=== PATIENT | female | born 1930 | race Caucasian/White ===

== ENCOUNTER → 2016-11-13 | Day surgery (SDC) | payer MEDICARE, BC ==
[~2016-11-13] MED LIST: AMIO200T PO; ASPI1TAB91 PO; AUGM500T7 PO; BIOT50005 PO; CARD240C6 PO; CINN500T PO; COUM2.5T PO; CRANBERRY 1680 MG PO; EYECAP PO; FURO1TAB62 PO; FURO20TA PO; GLUC15009 PO; JANU50TA4 PO; LACTATED RINGER'S 1000 ML INJ 1,000 ML ONE; LEVA750T PO; LIDOCAINE HCL 1% 50 ML VIAL ONE; LIDOCAINE HCL 2% 50 ML VIAL ONE; LOVA20TA PO; METH5 PO; METO25TA3 PO; MULT-6 PO; OPTI400C PO; POTA10TA15 PO; POTA20TA5 PO; PYRI100T PO; VITA10002 PO; VITA10003 PO; VITATAB11 PO; ceFAZolin INJ 1,000 MG VIAL ONE
--- NOTE | 2016-11-13 14:59 | TN ---
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 FINAL HISTOLOGICAL DIAGNOSIS: Pending. PROCEDURE: Left foot second toe proximal phalanx excision of bone tumor SURGEON Christo Downey MD ASSESSMENT Staff SPECIMENS Left foot second toe proximal phalanx tumor COMPLICATIONS None ANESTHESIA General, regional block. DRAINS: None. TOURNIQUET TIME: The tourniquet time 11 minutes 250 mmHg CONDITION: Condition stable PLAN OF ACTIVITY: Activity as per orders. PROCEDURE The patient was operating room had satisfactory regional TIVA anesthesia and regional anesthesia by Dr. Severino Department of anesthesia. The left lower extremity was prepped and draped in usual sterile fashion. The extremity was exsanguinated with ARGELIA wrap, tourniquet inflated to 250 mmHg. Longitudinal incision made on the plantar aspect the tibia aspect of the middle phalanx proximal phalanx. This dissection carried down to the mass. The neurovascular bundle was gently retracted out of operative field. The flexor tendons also retracted out of the operative field. Bluntly a 15 blade was then used to excise the tumor from the proximal phalanx. It was removed as one piece and then a small piece was removed by a rongeur. This was sent to pathology for final histological diagnosis. All bleeders coagulated. The wound closed in layers using 3-0 Vicryl suture. Skin approximated 3-0 nylon. Tourniquet was inflated to regain his vascularity he has no significant bleeding. Sterile dressings were applied. The patient tolerated the procedure well arrived room in satisfactory condition. MD BETRHA Diane/ivette /1:51 PM /1:59 PM
== END | disposition home or self-care (01) ==
LOC: ESDC 11:34
PROVIDERS: ATTEND Orthopaedic Surgery Orthopaedic Surgery of the Spine
DX: D16.9 Benign neoplasm of bone and articular cartilage, unspecified (principal)
CPT/HCPCS: 01482; 28175; 88305; 88311; J0690; J3010; J7120; 88307

== ENCOUNTER 2016-11-27 09:42 | Inpatient (IN) | payer MEDICARE, BC ==
[~2016-11-27] VITALS: Ht 154.9 cm; Wt 72.5 kg
[2016-11-27] VITALS (22 sets, daily range): BP systolic 87–130; BP diastolic 51–82; PULSE 92–148; RESP 15–25; TEMP 98.2–98.8; O2SAT 94–97
--- NOTE | 2016-11-27 10:07 | PD ---
HPI Chief Complaint: Cardiac Complaint Time Seen by Provider: 09:50 Travel History International Travel<30 days: No Contact w/Intl Traveler<30days: No Traveled to known affect area: No History of Present Illness HPI 86-year-old female presents with her with note of diagnosis with pneumonia 2 days ago and placed on Levaquin through an urgent care. She went to her primary care physician today who advised for her to come to the emergency room given her elevated heart rate and not improving. Patient notes that she still having a cough and intermittent fever. She states she feels short of breath when she moves. She denies other history. Patient's help supplement history and patient provides records as well as patient is having difficulty talking other than in a whisper. 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 and was benign, multiple cystoscopies, cataracts Genitourinary Surgery: Yes (BLADDED SUSPENSION ) Tonsillectomy: Yes Social History Alcohol Use: Yes (ONCE ) Tobacco Use: No (QUIT ) Substance Use: No Allergies-Medications (Allergen,Severity, Reaction): Coded Allergies: Ibuprofen (Verified Allergy, Unknown, 11/27/16) Procardia (Verified Allergy, Unknown, 11/27/16) Reported Meds & Prescriptions Reported Meds & Active Scripts Active Reported Potassium Chloride Microencaps 10 Meq Tab 5 Meq PO DAILY Lasix (Furosemide) 20 Mg Tab 20 Mg PO DAILY Lovastatin 20 Mg Tab 20 Mg PO DAILY Janumet (Sitagliptin-Metformin) 50-500 Mg Tab 1 Tab PO BID Cinnamon 500 Mg Tab 1,000 Mg PO BID Optiflex-C (Chondroitin Sulfate) 400 Mg Cap 1,200 Mg PO DAILY Glucosamine 1,500 Mg Tab 1,500 Mg PO DAILY Biotin 5,000 Mcg Cap 10,000 Mcg PO DAILY Vitamin B-6 (Pyridoxine HCl) 100 Mg Tab 100 Mg PO DAILY Vitamin B Complex (B-Complex Vitamins) 1 Tab 1 Tab PO DAILY Vitamin B-12 (Cyanocobalamin) 1,000 Mcg Tab 2,000 Mcg PO DAILY Vitamin D-3 (Cholecalciferol) 1,000 Unit Tab 1,000 Units PO DAILY Aspirin Adult Low Strength (Aspirin) 81 Mg Tabdr 81 Mg PO DAILY [Cranberry 1,680MG] 1,680 Mg PO DAILY Eye Vitamins (Multiple Vitamins W/ Minerals) 1 Cap 1 Cap PO DAILY Centrum (Multiple Vitamins W/ Minerals) 1 Tab 1 Tab PO DAILY Levaquin (Levofloxacin) 750 Mg Tab 750 Mg PO DAILY Review of Systems ROS Limitations: Speech Impaired (worse voice noted, supplements) Except as stated in HPI: all other systems reviewed are Neg Physical Exam Exam Limitations: Other: (hoarse voice noted, supplements) Narrative GENERAL: Well-nourished, well-developed patient. SKIN: Warm and dry. HEAD: Normocephalic and atraumatic. EYES: No injection or drainage. ENT: No nasal drainage noted. Hoarse voice noted NECK: Supple, trachea midline. CARDIOVASCULAR: Tachycardic rate in the 140s RESPIRATORY: Breath sounds equal bilaterally at apices. No accessory muscle use. GASTROINTESTINAL: Abdomen soft, non-tender, nondistended. NEUROLOGICAL: Awake and alert. Moves all extremities Data Data Last Documented VS Vital Signs Date Time Temp Pulse Resp B/P Pulse Ox O2 Delivery O2 Flow Rate FiO2 11/27/16 11:30 144 123/74 11/27/16 11:26 25 94 Nasal Cannula 2 11/27/16 09:45 98.2 Orders Electrocardiogram (11/27/16 ) Complete Blood Count With Diff (11/27/16 10:00) Comprehensive Metabolic Panel (11/27/16 10:00) Prothrombin Time / Inr (Pt) (11/27/16 10:00) Act Partial Throm Time (Ptt) (11/27/16 10:00) Lactic Acid Sepsis Protocol (11/27/16 10:00) Magnesium (Mg) (11/27/16 10:00) Phosphorus (Po4) (11/27/16 10:00) Ckmb (Isoenzyme) Profile (11/27/16 10:00) Troponin I (11/27/16 10:00) Urinalysis - C+S If Indicated (11/27/16 10:00) Influenzae A/B Antigen (11/27/16 10:00) Blood Culture (11/27/16 10:00) Chest, Single Ap (11/27/16 10:00) Ecg Monitoring (11/27/16 10:00) Iv Access Insert/Monitor (11/27/16 10:00) Oximetry (11/27/16 10:00) B-Type Natriuretic Peptide (11/27/16 10:00) Sodium Chlorid 0.9% 500 Ml Inj (Ns 500 M (11/27/16 10:15) Metoprolol Tartrate Inj (Lopressor Inj) (11/27/16 10:15) CKMB (11/27/16 10:10) CKMB% (11/27/16 10:10) Cefepime Inj (Maxipime Inj) (11/27/16 11:05) Azithromycin Inj (Zithromax Inj) (11/27/16 11:05) Metoprolol Tartrate Inj (Lopressor Inj) (11/27/16 11:15) Sodium Chlorid 0.9% 500 Ml Inj (Ns 500 M (11/27/16 11:15) Consult Cardiology (11/27/16 ) (Hub Use Only)Inp Phy Cons/Ref (11/27/16 ) Admit Order (Ed Use Only) (11/27/16 11:35) Labs Laboratory Tests Test 11/27/16 11/27/16 11/27/16 10:10 10:15 10:45 White Blood Count 14.2 TH/MM3 Red Blood Count 3.63 MIL/MM3 Hemoglobin 11.6 GM/DL Hematocrit 33.8 % Mean Corpuscular Volume 93.0 FL Mean Corpuscular Hemoglobin 32.0 PG Mean Corpuscular Hemoglobin 34.4 % Concent Red Cell Distribution Width 13.2 % Platelet Count 309 TH/MM3 Mean Platelet Volume 9.2 FL Neutrophils (%) (Auto) 77.1 % Lymphocytes (%) (Auto) 7.0 % Monocytes (%) (Auto) 15.6 % Eosinophils (%) (Auto) 0.1 % Basophils (%) (Auto) 0.2 % Neutrophils # (Auto) 11.0 TH/MM3 Lymphocytes # (Auto) 1.0 TH/MM3 Monocytes # (Auto) 2.2 TH/MM3 Eosinophils # (Auto) 0.0 TH/MM3 Basophils # (Auto) 0.0 TH/MM3 CBC Comment AUTO DIFF Differential Comment AUTO DIFF CONFIRMED Prothrombin Time 11.4 SEC Prothromb Time International 1.0 RATIO Ratio Activated Partial 36.3 SEC Thromboplast Time Sodium Level 136 MEQ/L Potassium Level 3.3 MEQ/L Chloride Level 99 MEQ/L Carbon Dioxide Level 25.9 MEQ/L Anion Gap 11 MEQ/L Blood Urea Nitrogen 16 MG/DL Creatinine 0.87 MG/DL Estimat Glomerular Filtration 61 ML/MIN Rate Random Glucose 118 MG/DL Calcium Level 9.2 MG/DL Phosphorus Level 2.6 MG/DL Magnesium Level 2.0 MG/DL Total Bilirubin 0.7 MG/DL Aspartate Amino Transf 28 U/L (AST/SGOT) Alanine Aminotransferase 28 U/L (ALT/SGPT) Alkaline Phosphatase 124 U/L Total Creatine Kinase 154 U/L Creatine Kinase MB 3.1 NG/ML Troponin I 0.06 NG/ML B-Type Natriuretic Peptide 428 PG/ML Total Protein 7.5 GM/DL Albumin 3.0 GM/DL Lactic Acid Level 2.5 mmol/L Urine Color YELLOW Urine Turbidity CLEAR Urine pH 5.0 Urine Specific [place] 1.009 Urine Protein NEG mg/dL Urine Glucose (UA) NEG mg/dL Urine Ketones NEG mg/dL Urine Occult Blood NEG Urine Nitrite NEG Urine Bilirubin NEG Urine Urobilinogen LESS THAN 2.0 MG/DL Urine Leukocyte Esterase NEG Urine RBC LESS THAN 1 /hpf Urine WBC LESS THAN 1 /hpf Urine Squamous Epithelial 2 /hpf Cells Urine Bacteria RARE /hpf Urine Mucus FEW /lpf Microscopic Urinalysis Comment CATH-CULTURE IND MDM Medical Decision Making Medical Screen Exam Complete: Yes Emergency Medical Condition: Yes Medical Record Reviewed: Yes (past history confirmed) Interpretation(s) EKG is tachycardic in the 140s question a flutter versus sinus tachycardia EKG rhythm strip question underlying a flutter versus A. fib after adenosine CBC & BMP Diagram 11/27/16 10:10 Last 24 hours Impressions Chest X-Ray 11/27/16 1000 Signed Impressions: Service Date/Time: Sunday, November 27, 2016 10:07 - CONCLUSION: 1. Coarse patchy opacity in both lung bases. The differential diagnosis includes aspiration pneumonia and scarring. 2. Mild hyperinflation which could indicate underlying emphysema. Comparison with any old outside studies would be helpful. Greg Harris MD Differential Diagnosis SVT, a flutter, atrial fibrillation, sinus tachycardia, sepsis, pneumonia, anemia, electrolyte abnormality, renal failure Narrative Course Will check blood work, chest x-ray, EKG and dose with Lopressor 1.25mg no change after initial Lopressor dose 2.5 mg given no change in hr but dropped BP, will bolus IVF adenosine 1306 given an question underlying A. fib versus flutter, will discuss with nutrition partner 311 amio drip and bolus ordered. Family updated and agree to admission. Critical Care Narrative Aggregate critical care time was 50 minutes. Time to perform other separately billable procedures was not included in the critical care time. My time did not include minutes spent treating any other patients simultaneously or on activities that did not directly contribute to the patient's treatment. The services I provided to this patient were to treat and/or prevent clinically significant deterioration that could result in: shock, respiratory failure I provided critical care services requiring my management, as noted below: Chart data review, documentation time, medication orders and management, vital sign assessments/reviewing monitor data, ordering and reviewing lab tests, ordering and interpreting/reviewing x-rays and diagnostic studies, care of the patient and discussion of the patient with the admitting physicians. Sepsis Criteria SIRS Criteria (2 or more): Heart rate over 90, WBC > 08036, < 4000 or > 10% bands Sepsis Criteria (SIRS+source): Infect source susp/known Severe Sepsis (+one): Lactate >2 Criteria Outcome: Meets severe sepsis criteria Physician Communication Physician Communication dr Cannon states to repeat ivf and lopressor and will follow [address] cannon states to give adenosine to see underlying rhythm dr cannon came to bedside and agrees to amiodarone 150mg bolus and drip as likely underlying atrial tachycardia dr yeager agrees to admit Diagnosis Primary Impression: Severe sepsis Additional Impressions: Tachycardia Pneumonia Qualified Code: J18.9 - Pneumonia of both lower lobes due to infectious organism Admitting Information Admitting Physician Requests: Admit Frances Bhatti MD Nov 27, 2016 10:07
[2016-11-27] MEDS ORDERED: SODIUM CHLORID 0.9% 500 ML INJ 500 ML IV ONE ×2 (10:15→11:15)
[2016-11-27] MEDS ORDERED: METOPROLOL TARTRATE 5 MG/5 ML VIAL IV PUSH ONE ×2 (10:15→11:15)
--- NOTE | 2016-11-27 10:43 | RADRPT ---
EXAM DATE/TIME: 11/27/2016 10:07 [place] COMPARISON: No previous studies available for comparison. INDICATIONS : Short of breath. MEDICAL HISTORY : pneumonia SURGICAL HISTORY : None. ENCOUNTER: Initial ACUITY: 1 day PAIN SCORE: 0/10 LOCATION: Bilateral chest FINDINGS: 2 AP erect portable views of the chest were obtained and demonstrate mild hyperinflation. There are p atchy coarse areas of opacity in both lung bases. The heart size is at the upper limits of normal wit h no perihilar edema. Tracheal calcifications are noted. There are atherosclerotic changes in the aor ta. The bony thorax is intact with multiple overlying electrocardiogram leads. CONCLUSION: 1. Coarse patchy opacity in both lung bases. The differential diagnosis includes aspiration pneumonia and scarring. 2. Mild hyperinflation which could indicate underlying emphysema. Comparison with any old outside tra dies would be helpful. Greg Harris MD on November 27, 2016 at 10:39 Board Certified Radiologist. This report was verified electronically.
[2016-11-27 10:45] LABS: BASOPHIL % 0.2 % (0.0-2.0); EOSINOPHIL % 0.1 % (0.0-4.0); HEMATOCRIT 33.8 % (35.0-46.0); MEAN CORPUSCULAR HGB CONC 34.4 % (32.0-36.0); MONO % 15.6 % (0.0-8.0); NEUT % 77.1 % (16.0-70.0); PLATELET COUNT 309 TH/MM3 (150-450); RED BLOOD COUNT 3.63 MIL/MM3 (4.00-5.30); RED CELL DISTRIBUTION WIDTH 13.2 % (11.6-17.2); WHITE BLOOD COUNT 14.2 TH/MM3 (4.0-11.0)
[2016-11-27 10:49] LABS: HEMO FLAGS AUTO DIFF
[2016-11-27 10:53] LABS: APTT (PATIENT) 36.3 SEC (24.3-30.1); PROTHROMBIN TIME - PATIENT 11.4 SEC (9.8-11.6)
[2016-11-27 10:58] LABS: ALT (GPT) 28 U/L (10-53); ANION GAP 11 MEQ/L (5-15); AST (GOT) 28 U/L (15-37); BICARBONATE 25.9 MEQ/L (21.0-32.0); BLOOD UREA NITROGEN 16 MG/DL (7-18); CHLORIDE 99 MEQ/L (98-107); GLOMERULAR FILTRATION RATE 61 ML/MIN (>89); POTASSIUM 3.3 MEQ/L (3.5-5.1); SODIUM (NA) 136 MEQ/L (136-145)
[2016-11-27 11:04] LABS: ALKALINE PHOSPHATASE 124 U/L (45-117); CREATINE KINASE 154 U/L (26-192); TOTAL BILIRUBIN ADULT 0.7 MG/DL (0.2-1.0)
[2016-11-27] MEDS ORDERED: AZITHROMYCIN INJ 500 MG in SODIUM CHLOR 0.9% 250 ML INJ 250 ML IV STA (11:05)
[2016-11-27] MEDS ORDERED: CEFEPIME INJ 2,000 MG in SODIUM CHLORIDE 0.9% INJ 100 ML IV STA (11:05)
[2016-11-27 11:13] LABS: SCAN/DIFF AUTO DIFF CONFIRMED
[2016-11-27 11:19] LABS: CKMB 3.1 NG/ML (0.5-3.6)
[2016-11-27] MEDS ORDERED: MULT-6 PO (11:29)
[2016-11-27] MEDS ORDERED: ASPI1TAB91 PO (11:29)
[2016-11-27] MEDS ORDERED: LEVA750T PO (11:29)
[2016-11-27] MEDS ORDERED: VITA10002 PO (11:29)
[2016-11-27] MEDS ORDERED: CRANBERRY 1680 MG PO (11:29)
[2016-11-27] MEDS ORDERED: CINN500T PO (11:29)
[2016-11-27] MEDS ORDERED: PYRI100T PO (11:29)
[2016-11-27] MEDS ORDERED: FURO1TAB62 PO (11:29)
[2016-11-27] MEDS ORDERED: LOVA20TA PO (11:29)
[2016-11-27] MEDS ORDERED: VITATAB11 PO (11:29)
[2016-11-27] MEDS ORDERED: JANU50TA4 PO (11:29)
[2016-11-27] MEDS ORDERED: POTA10TA15 PO (11:29)
[2016-11-27] MEDS ORDERED: VITA10003 PO (11:29)
[2016-11-27] MEDS ORDERED: GLUC15009 PO (11:29)
[2016-11-27] MEDS ORDERED: OPTI400C PO (11:29)
[2016-11-27] MEDS ORDERED: EYECAP PO (11:29)
[2016-11-27] MEDS ORDERED: BIOT50005 PO (11:29)
[2016-11-27 11:42] LABS: BACTERIA, URINE RARE /hpf; BLOOD, URINE NEG (NEG); GLUCOSE,URINE NEG (NEG); KETONE, URINE NEG (NEG); MUCUS URINE FEW /lpf (OCC); NITRITE,URINE NEG (NEG); SQUAMOUS EPITHELIAL CELL URINE 2 /hpf (0-5); URINE COLOR YELLOW (YELLW/STRAW)
[2016-11-27 11:44] LABS: COMMENT (UR) CATH-CULTURE IND; CULTURE IF INDICATED CATH CULTURE IND
[2016-11-27] MEDS: AZITHROMYCIN INJ 500 MG in SODIUM CHLOR 0.9% 250 ML INJ 250 ML IV SCH (12:00)
[2016-11-27 12:29] LABS: LACTIC ACID GHOST NOT REPORTABLE
[2016-11-27] MEDS ORDERED: ADENOSINE IV SOLN 3 MG/ML 2 ML VIAL IV PUSH ONE (12:45)
--- NOTE | 2016-11-27 13:22 | EKG ---
Date Performed: 11/27/2016 Time Performed: 09:54:25 PTAGE: 86 years EKG: POSSIBLE SUPRAVENTRICULAR TACHYCARDIA POSSIBLE INFERIOR MYOCARDIAL INFARCTION NONSPECIFIC S T/T CHANGES ABNORMAL RHYTHM ECG NO PREVIOUS TRACING DOCTOR: Richardson Ferguson Interpretating Date/Time 11/27/2016 13:21:22
[2016-11-27] MEDS ORDERED: METOPROLOL TARTRATE 25 MG TAB PO SCH (14:00)
[2016-11-27] MEDS: AMPICILLIN-SULBACTAM INJ 3 GM in SODIUM CHLORIDE 0.9% INJ 100 ML IV SCH ×2 (14:36→21:15)
[2016-11-27] MEDS: SODIUM CHLOR 0.9% 1000 ML INJ 1,000 ML IV SCH ×2 (14:36→20:59)
[2016-11-27] MEDS ORDERED: AMIODARONE INJ 900 MG in D5W 500 ML (EXCEL BAG) 482 ML IV SCH (15:15)
[2016-11-27] MEDS ORDERED: AMIODARONE INJ 150 MG in DEXTROSE 5% IN WATER 100ML INJ 97 ML IV ONE ×2 (15:15)
[2016-11-27] MEDS ORDERED: POTASSIUM CHLORIDE 25 MEQ EFFERVESCENT TAB PO ONE (15:45)
[2016-11-27] MEDS ORDERED: AMIODARONE INJ 450 MG in D5W (EXCEL BAG) 241 ML IV SCH (16:00)
--- NOTE | 2016-11-27 17:09 | MB ---
cc: JOVANY SANCHEZ MD DATE OF CONSULTATION: 11/27/2016 REASON FOR CONSULTATION: New onset atrial fibrillation. HISTORY OF PRESENT ILLNESS Ms. Levy is an 86 year-old female who does have a history of diabetes and dyslipidemia. The patient reports that she has had fever and chills, and was seen by her primary recently and placed on antibiotics for this. She represented today and was found to have an elevated heart rate and subsequently referred to the emergency room. The patient denies any chest pain or palpitations. She has had some shortness of breath. ALLERGIES: IBUPROFEN PROCARDIA OUTPATIENT MEDICATIONS: 1. Lasix. 2. Potassium. 3. Lovastatin. 4. Janumet. 5. Multiple stqi-vag-ymjhgal medications. 6. Levaquin. PAST MEDICAL HISTORY: Significant for: 1. Diabetes. 2. Dyslipidemia. 3. Cataracts. Status post surgery bilaterally. 4. Right hip replacement by Dr. Austin Cerna. 5. Bladder suspension. 6. Pericarditis. 7. Multiple episodes of pneumonia. SOCIAL HISTORY: The patient is . She is a former smoker. REVIEW OF SYSTEMS: Except as mentioned in the HPI, all 12 systems are negative. PHYSICAL EXAMINATION: Vital signs 144, 16, 107/66 with a saturation of 93. GENERAL: She is a well-appearing female who is in no apparent distress. NECK: Free from JVD. LUNGS: Some diffuse crackles. CARDIOVASCULAR: She has a tachycardiac rhythm. I am unable to appreciate any murmurs, rubs, or gallops. ABDOMEN: Soft. EXTREMITIES: Free from edema. LABORATORY VALUES: Significant for white count of 14.2, her creatinine is 0.87, lactic acid is 2.5, troponin is 0.06 and BMP is 428 with an albumin of 3.0. Chest x-ray shows coarse bilateral patchy opacities. Telemetry shows supraventricular tachycardia at 144 beats per minute. Intervention with adenosine does show a slowing of the ventricular rate and what appears to be an underlying atrial fibrillation. IMPRESSION New onset atrial fibrillation. The patient had been given some IV fluids and Lopressor initially. Her blood pressure did get low with this. Subsequently adenosine was utilized and did reveal new onset atrial fibrillation. At this time we are going to add IV amiodarone. I do also anticipate adding metoprolol p.o. to assist with rate control. If her heart rate does not respond to these measures, will consider cardioversion after the amiodarone is in. The patient has a CHADSVASC score of at least 4, for over 75, female, and diabetes. Thus, she would benefit from anticoagulation. Of note, the patient is not able to tell how long she was in A-fib, thus, the cardioversion would have a significantly elevated risk profile. This will be taken into consideration. Pneumonia. This is being managed by the primary team. Hypokalemia. The patient will be supplemented for this as well. Jovany Sanchez M.D. [place]/BRYN /3:32 PM /4:37 PM
[2016-11-27] MEDS ORDERED: DILTIAZEM HCL 25 MG/5 ML VIAL IV ONE (17:15)
[2016-11-27] MEDS: ENOXAPARIN SODIUM 60 MG/0.6 ML SYRINGE SQ SCH (17:20)
[2016-11-27] MEDS ORDERED: DIGOXIN 0.5 MG/2 ML VIAL IV PUSH ONE (18:00)
[2016-11-27] MEDS ORDERED: DILTIAZEM HCL 25 MG/5 ML VIAL IVP ONE (18:00)
[2016-11-27] MEDS ORDERED: DEXTROSE 50% IN WATER 50 ML VIAL(D50) IV PUSH PRN (18:15)
[2016-11-27] MEDS ORDERED: GLUCAGON 1 MG/ML VIAL OTHER PRN (18:15)
--- NOTE | 2016-11-27 18:17 | HHI.PR ---
Objective Objective Results - Vital Signs Date Time Temp Pulse Resp B/P Pulse Ox O2 Delivery O2 Flow Rate FiO2 11/27/16 18:00 139 20 103/64 95 Nasal Cannula 6 11/27/16 17:15 139 15 111/60 96 Nasal Cannula 6 11/27/16 16:15 137 107/60 Nasal Cannula 2 11/27/16 16:00 144 25 114/64 96 Nasal Cannula 6 11/27/16 15:30 143 25 119/65 96 Nasal Cannula 2 11/27/16 14:30 144 16 117/71 95 Nasal Cannula 2 11/27/16 13:14 144 17 108/65 97 Room Air 11/27/16 13:08 144 19 108/66 96 Nasal Cannula 2 11/27/16 12:15 144 87/51 Nasal Cannula 2 11/27/16 12:00 144 25 91/57 96 Nasal Cannula 2 11/27/16 11:45 142 97/59 11/27/16 11:30 144 123/74 11/27/16 11:26 146 25 123/74 94 Nasal Cannula 2 11/27/16 10:25 92 Room Air 11/27/16 10:25 146 22 120/67 95 Nasal Cannula 2 11/27/16 09:53 147 16 130/82 95 11/27/16 09:45 98.2 148 16 115/64 95 Result Diagram: 11/27/16 1010 11/27/16 1010 Other Results Laboratory Tests Test 11/27/16 11/27/16 11/27/16 11/27/16 10:10 10:15 10:45 17:10 White Blood Count 14.2 Red Blood Count 3.63 Hemoglobin 11.6 Hematocrit 33.8 Mean Corpuscular Volume 93.0 Mean Corpuscular Hemoglobin 32.0 Mean Corpuscular Hemoglobin 34.4 Concent Red Cell Distribution Width 13.2 Platelet Count 309 Mean Platelet Volume 9.2 Neutrophils (%) (Auto) 77.1 Lymphocytes (%) (Auto) 7.0 Monocytes (%) (Auto) 15.6 Eosinophils (%) (Auto) 0.1 Basophils (%) (Auto) 0.2 Neutrophils # (Auto) 11.0 Lymphocytes # (Auto) 1.0 Monocytes # (Auto) 2.2 Eosinophils # (Auto) 0.0 Basophils # (Auto) 0.0 CBC Comment AUTO DIFF Differential Comment AUTO DIFF CONFIRMED Prothrombin Time 11.4 Prothromb Time International 1.0 Ratio Activated Partial 36.3 Thromboplast Time Sodium Level 136 Potassium Level 3.3 Chloride Level 99 Carbon Dioxide Level 25.9 Anion Gap 11 Blood Urea Nitrogen 16 Creatinine 0.87 Estimat Glomerular Filtration 61 Rate Random Glucose 118 Calcium Level 9.2 Phosphorus Level 2.6 Magnesium Level 2.0 Total Bilirubin 0.7 Aspartate Amino Transf 28 (AST/SGOT) Alanine Aminotransferase 28 (ALT/SGPT) Alkaline Phosphatase 124 Total Creatine Kinase 154 Creatine Kinase MB 3.1 Troponin I 0.06 B-Type Natriuretic Peptide 428 Total Protein 7.5 Albumin 3.0 Lactic Acid Level 2.5 1.1 Urine Color YELLOW Urine Turbidity CLEAR Urine pH 5.0 Urine Specific [place] 1.009 Urine Protein NEG Urine Glucose (UA) NEG Urine Ketones NEG Urine Occult Blood NEG Urine Nitrite NEG Urine Bilirubin NEG Urine Urobilinogen LESS THAN 2.0 Urine Leukocyte Esterase NEG Urine RBC LESS THAN 1 Urine WBC LESS THAN 1 Urine Squamous Epithelial 2 Cells Urine Bacteria RARE Urine Mucus FEW Microscopic Urinalysis Comment CATH-CULTURE IND Date/Time Procedure Status Source Growth 11/27/16 10:45 Urine Culture Received Urine Catheterized Urine Pending 11/27/16 10:15 Aerobic Blood Culture Received Blood Peripheral Pending 11/27/16 10:15 Anaerobic Blood Culture Received Blood Peripheral Pending 11/27/16 10:10 Influenza Types A,B Antigen (BRADY) - Final Complete Nasal Aspirate NEGATIVE FOR FLU A AND B ANTIGEN.... Physical Exam Physical Exam PT is seen & examined d/w PT d/w Sraa d/w MARIETTA TRINIDAD see Orders see H&P Pneumonia new onset Afib/flutter w RVR DM abx card input appreciated will; f/u Jimbo Romero MD Nov 27, 2016 18:17
[2016-11-27] MEDS: DILTIAZEM INJ 125 MG in SODIUM CHLORIDE 0.9% INJ 100 ML IV SCH (20:57)
[2016-11-27] MEDS: FAMOTIDINE 20 MG TAB PO SCH (21:00)
[2016-11-27] MEDS: INSULIN ASPART SUPPLEMENTAL SCALE SQ SCH (21:07)
[2016-11-27] MEDS: metFORMIN HCL 500 MG TAB PO SCH (21:12)
[2016-11-28] VITALS (24 sets, daily range): BP systolic 104–131; BP diastolic 53–71; PULSE 87–142; RESP 16–18; TEMP 97.8–98.7; O2SAT 92–96
[2016-11-28] MEDS: AMPICILLIN-SULBACTAM INJ 3 GM in SODIUM CHLORIDE 0.9% INJ 100 ML IV SCH ×4 (00:54→20:03)
[2016-11-28] MEDS: ENOXAPARIN SODIUM 60 MG/0.6 ML SYRINGE SQ SCH ×2 (05:23→17:36)
[2016-11-28] MEDS: INSULIN ASPART SUPPLEMENTAL SCALE SQ SCH ×4 (05:25→20:03)
[2016-11-28] MEDS: DILTIAZEM INJ 125 MG in SODIUM CHLORIDE 0.9% INJ 100 ML IV SCH (05:26)
[2016-11-28 06:22] LABS: MEAN CELL VOLUME 93.9 FL (80.0-100.0); MEAN CORPUSCULAR HEMOGLOBIN 31.5 PG (27.0-34.0); MEAN CORPUSCULAR HGB CONC 33.5 % (32.0-36.0); PLATELET COUNT 298 TH/MM3 (150-450); RED BLOOD COUNT 3.31 MIL/MM3 (4.00-5.30); RED CELL DISTRIBUTION WIDTH 13.4 % (11.6-17.2); REVIEW FLAG FINAL; WHITE BLOOD COUNT 13.9 TH/MM3 (4.0-11.0)
[2016-11-28 06:50] LABS: BICARBONATE 22.8 MEQ/L (21.0-32.0); POTASSIUM 3.8 MEQ/L (3.5-5.1)
--- NOTE | 2016-11-28 07:26 | PD.CARD.PN ---
Subjective Subjective Remarks Pt feeling better Objective Medications Current Medications Medications (Trade) Dose Ordered Sig/Yovanny Route Start Time Stop Time Status Last Admin Ampicillin Sodium/ Sulbactam Sodium 3 gm/Sodium Chloride 100 ml @ 200 mls/hr Q6H IV 11/27/16 14:00 11/28/16 00:54 (Zithromax Inj/ NS 250 ml Inj) 250 ml @ 250 mls/hr Q24H IV 11/27/16 12:00 Famotidine 20 mg 20 mg BID PO 11/27/16 21:00 Sodium Chloride 1,000 ml @ 84 mls/hr [id number] IV 11/27/16 12:30 11/27/16 20:59 (Cordarone Inj/ D5W ([place]) Inj) 250 ml @ 0 mls/hr CONTINUOUS IV 11/27/16 16:00 Enoxaparin Sodium 60 mg 60 mg Q12H SQ 11/27/16 18:00 11/28/16 05:23 (Cardizem Inj/NS Inj) 125 ml @ 0 mls/hr TITRATE IV 11/27/16 18:00 11/28/16 05:26 (Ecotrin Ec) 81 mg DAILY PO 11/28/16 09:00 (Pravachol) 20 mg DAILY PO 11/28/16 09:00 (Januvia) 50 mg BID PO 11/27/16 21:00 11/27/16 21:08 (D50w (Vial) Inj) 25 ml UNSCH PRN IV PUSH 11/27/16 18:15 (Glucagon Inj) 1 mg UNSCH PRN OTHER 11/27/16 18:15 (Glucophage) 500 mg BID PO 11/27/16 21:00 11/27/16 21:12 Vital Signs / I&O Vital Signs Date Time Temp Pulse Resp B/P Pulse Ox O2 Delivery O2 Flow Rate FiO2 11/28/16 06:00 94 11/28/16 05:00 106 11/28/16 04:00 98.4 112 18 107/69 93 11/28/16 04:00 113 11/28/16 03:00 102 11/28/16 02:00 102 11/28/16 01:00 112 11/28/16 00:00 101 11/28/16 00:00 98.0 139 18 121/71 96 11/27/16 23:00 92 11/27/16 22:00 110 11/27/16 21:40 96 Nasal Cannula 5.00 11/27/16 21:00 138 11/27/16 20:00 98.5 139 18 112/69 96 11/27/16 20:00 137 11/27/16 18:26 98.8 140 18 105/75 97 11/27/16 18:00 139 20 103/64 95 Nasal Cannula 6 11/27/16 17:15 139 15 111/60 96 Nasal Cannula 6 11/27/16 16:15 137 107/60 Nasal Cannula 2 11/27/16 16:00 144 25 114/64 96 Nasal Cannula 6 11/27/16 15:30 143 25 119/65 96 Nasal Cannula 2 11/27/16 14:30 144 16 117/71 95 Nasal Cannula 2 11/27/16 13:14 144 17 108/65 97 Room Air 11/27/16 13:08 144 19 108/66 96 Nasal Cannula 2 11/27/16 12:15 144 87/51 Nasal Cannula 2 11/27/16 12:00 144 25 91/57 96 Nasal Cannula 2 11/27/16 11:45 142 97/59 11/27/16 11:30 144 123/74 11/27/16 11:26 146 25 123/74 94 Nasal Cannula 2 11/27/16 10:25 92 Room Air 11/27/16 10:25 146 22 120/67 95 Nasal Cannula 2 11/27/16 09:53 147 16 130/82 95 11/27/16 09:45 98.2 148 16 115/64 95 Physical Exam GENERAL: Well developed, well nourished. No acute distress. HEENT: Jugular venous pressure is normal. CHEST: Lungs rales in left base. Unlabored respiratory effort. CARDIAC: irregular rate and rhythm without S3, S4, or murmur. ABDOMEN: Soft, nontender, EXTREMITIES: No clubbing, cyanosis, or edema. Laboratory Laboratory Tests Test 11/27/16 11/27/16 11/27/16 11/27/16 10:10 10:15 10:45 17:10 White Blood Count 14.2 TH/MM3 Red Blood Count 3.63 MIL/MM3 Hemoglobin 11.6 GM/DL Hematocrit 33.8 % Mean Corpuscular Volume 93.0 FL Mean Corpuscular Hemoglobin 32.0 PG Mean Corpuscular Hemoglobin 34.4 % Concent Red Cell Distribution Width 13.2 % Platelet Count 309 TH/MM3 Mean Platelet Volume 9.2 FL Neutrophils (%) (Auto) 77.1 % Lymphocytes (%) (Auto) 7.0 % Monocytes (%) (Auto) 15.6 % Eosinophils (%) (Auto) 0.1 % Basophils (%) (Auto) 0.2 % Neutrophils # (Auto) 11.0 TH/MM3 Lymphocytes # (Auto) 1.0 TH/MM3 Monocytes # (Auto) 2.2 TH/MM3 Eosinophils # (Auto) 0.0 TH/MM3 Basophils # (Auto) 0.0 TH/MM3 CBC Comment AUTO DIFF Differential Comment AUTO DIFF CONFIRMED Prothrombin Time 11.4 SEC Prothromb Time International 1.0 RATIO Ratio Activated Partial 36.3 SEC Thromboplast Time Sodium Level 136 MEQ/L Potassium Level 3.3 MEQ/L Chloride Level 99 MEQ/L Carbon Dioxide Level 25.9 MEQ/L Anion Gap 11 MEQ/L Blood Urea Nitrogen 16 MG/DL Creatinine 0.87 MG/DL Estimat Glomerular Filtration 61 ML/MIN Rate Random Glucose 118 MG/DL Calcium Level 9.2 MG/DL Phosphorus Level 2.6 MG/DL Magnesium Level 2.0 MG/DL Total Bilirubin 0.7 MG/DL Aspartate Amino Transf 28 U/L (AST/SGOT) Alanine Aminotransferase 28 U/L (ALT/SGPT) Alkaline Phosphatase 124 U/L Total Creatine Kinase 154 U/L Creatine Kinase MB 3.1 NG/ML Troponin I 0.06 NG/ML B-Type Natriuretic Peptide 428 PG/ML Total Protein 7.5 GM/DL Albumin 3.0 GM/DL Lactic Acid Level 2.5 mmol/L 1.1 mmol/L Urine Color YELLOW Urine Turbidity CLEAR Urine pH 5.0 Urine Specific [place] 1.009 Urine Protein NEG mg/dL Urine Glucose (UA) NEG mg/dL Urine Ketones NEG mg/dL Urine Occult Blood NEG Urine Nitrite NEG Urine Bilirubin NEG Urine Urobilinogen LESS THAN 2.0 MG/DL Urine Leukocyte Esterase NEG Urine RBC LESS THAN 1 /hpf Urine WBC LESS THAN 1 /hpf Urine Squamous Epithelial 2 /hpf Cells Urine Bacteria RARE /hpf Urine Mucus FEW /lpf Microscopic Urinalysis Comment CATH-CULTURE IND Test 11/27/16 11/28/16 21:45 04:13 Troponin I 0.06 NG/ML Thyroid Stimulating Hormone 0.341 uIU/ML 3rd Gen White Blood Count 13.9 TH/MM3 Red Blood Count 3.31 MIL/MM3 Hemoglobin 10.4 GM/DL Hematocrit 31.0 % Mean Corpuscular Volume 93.9 FL Mean Corpuscular Hemoglobin 31.5 PG Mean Corpuscular Hemoglobin 33.5 % Concent Red Cell Distribution Width 13.4 % Platelet Count 298 TH/MM3 Mean Platelet Volume 9.1 FL Sodium Level 138 MEQ/L Potassium Level 3.8 MEQ/L Chloride Level 105 MEQ/L Carbon Dioxide Level 22.8 MEQ/L Anion Gap 10 MEQ/L Blood Urea Nitrogen 13 MG/DL Creatinine 0.61 MG/DL Estimat Glomerular Filtration 93 ML/MIN Rate Random Glucose 117 MG/DL Calcium Level 8.4 MG/DL Imaging Last 72 hours Impressions Chest X-Ray 11/27/16 1000 Signed Impressions: Service Date/Time: Sunday, November 27, 2016 10:07 - CONCLUSION: 1. Coarse patchy opacity in both lung bases. The differential diagnosis includes aspiration pneumonia and scarring. 2. Mild hyperinflation which could indicate underlying emphysema. Comparison with any old outside studies would be helpful. Greg Harris MD Assessment and Plan Assessment and Plan AF- rate was controlled with diltiazem, digoxin and amiodarone, then diltiazem was stopped and restarted by nursing - change to PO dilt - coumadin vs LANCE discussed => coumadin secondary to cost, I will start and further management per primary team -target INR 2.0-3.0, d/c lovenox when INR >1.9 Elevated trop- secondary to HR and hypoxia Pneumonia- antibiotics per primary team Caitlin Cannon MD Nov 28, 2016 07:26
[2016-11-28] MEDS: metFORMIN HCL 500 MG TAB PO SCH ×2 (08:07→20:03)
[2016-11-28] MEDS: DILTIAZEM HCL 90 MG TAB PO SCH ×4 (08:07→23:09)
[2016-11-28] MEDS: FAMOTIDINE 20 MG TAB PO SCH ×2 (08:08→20:03)
[2016-11-28] MEDS: PRAVASTATIN SOD 20 MG TAB PO SCH (08:08)
[2016-11-28] MEDS ORDERED: ASPIRIN EC 81 MG TABEC PO SCH (09:00)
--- NOTE | 2016-11-28 09:33 | MH ---
cc: ART ROMERO MD DATE OF ADMISSION 11/27/2016 DATE OF 1930 CHIEF COMPLAINT Recent diagnosis of pneumonia and tachycardia. Travel in the last 30 days, none. HISTORY OF THE PRESENT ILLNESS This is a pleasant 86-year-old white female who was in her usual state of health and very active up until approximately 4-5 days ago. The patient came home from an event with some of her friends and noted a sore throat with some mild fever. The patient went to bed, treated her symptoms which continued throughout Saturday without any relief. On Saturday, on day three, the patient was taken to the Urgent Care per her to have a chest x-ray and was diagnosed with pneumonia. The patient was then told that she would be placed on p.o. antibiotics but if she did not get better she would have to come to the hospital. Today the patient was resting and noticed her heart feel like it was racing. The patient denies any previous issues with her heart except for a cardiac murmur. No myocardial infarction. No cardiovascular disease. No dysrhythmia. The patient also notes that she has been coughing so hard to the point that she could not catch her breath. The patient is positive for shortness of breath but no diaphoresis. No headache. No nausea. No vomiting. No diarrhea. No constipation. The patient did have a small stool yesterday but does note she has had no appetite and has eaten very little food. Please note the patient also had left foot first toe surgery. It has a dressing that is clean, dry and intact and has been taken care of per her . The sutures are out. There is no obvious erythema or edema. PAST MEDICAL HISTORY Includes: 1. Four episodes of pneumonia over the past 15 years. Before this pneumonia it was noted in December of 2013. 2. Diabetes type 2. 3. Hypokalemia. 4. Hyperlipidemia. 5. Recent pneumonia. 6. Cataracts. PAST SURGICAL HISTORY 1. Tonsillectomy. 2. Bladder suspension. 3. Varicose veins. 4. Polyp removed from her throat. 5. Hip replacement, right. 6. Hysterectomy partial. 7. Pancreatectomy. 8. Spleen removal. 9. Multiple cystoscopy. 10. Cataracts. ALLERGIES IBUPROFEN AND PROCARDIA. MEDICATIONS Reported medications: 1. Potassium. 2. Lasix. 3. Lovastatin. 4. Januvia. 5. Janumet. 6. Cinnamon. 7. Optiflex. 8. Glucosamine. 9. Biotin. 10. Vitamins. 11. Aspirin. 12. Eye vitamins. 13. Levaquin. SOCIAL HISTORY The patient is . Currently lives at home with her . The patient was a previous tobacco user but has quit many years ago. No illicit drugs. Tried alcohol one time. REVIEW OF SYSTEMS A 12 point review was done. Positives noted, recent cough, pneumonia, ___, sore throat, left-sided flank pain, left-sided rib pain, tachycardia, recent toe surgery on the left foot. Other systems negative or unremarkable. PHYSICAL EXAMINATION VITAL SIGNS: Temperature is 98.2, pulse 144, respiratory rate 16, blood pressure 117/71. O2 saturation 95% on 2 liters nasal cannula. GENERAL: Thin, but well-nourished white female looks to be her stated age, resting on a stretcher. She is alert. A fair historian. Her does assist with her history. HEENT: Atraumatic, normocephalic. Pupils equal, round, reactive to light and accommodation. Mucous membranes are pink, dry. NECK: Supple. Trachea is midline. CARDIOVASCULAR: S1-S2. Soft systolic murmur at the left sternal border. She has a minimal trace of lower leg edema and her pulses are intact. LUNGS: Diminished breath sounds left being more diminished than the right. Tight sounding lungs with mild expiratory wheeze. No rhonchi. ABDOMEN: Flat, soft and nontender. Nondistended. Active bowel sounds. MUSCULOSKELETAL: Lower extremities with trace of edema. Pulses are intact and extremities are warm. She moves her upper extremities equal and on command. NEUROLOGIC: She is alert, oriented. A fair historian. Speech is clear. PSYCHIATRIC: Appropriate mood and affect. LABORATORY DATA Diagnostic data, white blood cell count 14.2, RBC 3.63, hemoglobin 11.6, hematocrit 33.8. Abnormal differential blood count shows leukocyte percentage 77.1, lymphocytes 7, monocytes 15.6. Chemistry, sodium 136, potassium 3.3, chloride 99, carbon dioxide 25.9, anion gap 11, BUN 16, creatinine 0.87. GFR 61. Random glucose 118. Lactic acid 2.5. Alkaline phosphatase 124. Troponin 0.06. BNP 428. Total protein 7.5. Albumin 3. PT INR 1.0. Urine is yellow, clear. PH is 5, specific gravity 1.009. Negative for protein, glucose, ketones, occult blood, nitrites, bilirubin and leukocyte esterase. A few urine mucus noted. Culture is indicated. IMAGING Imaging studies show chest x-ray with coarse, patchy opacity in both lungs. Differential diagnosis includes aspiration pneumonia and scarring, mild hyperinflation which would indicate underlying emphysema. Comparison with old studies would be helpful. ASSESSMENT AND PLAN 1. Lactic acid sepsis with pneumonia. 2. Dysrhythmia with atrial flutter, rapid ventricular response. 3. Leukocytosis probably secondary to the pneumonia. 4. Possible urinary tract infection. 5. Anemia. 6. Hypokalemia. 7. Hyperglycemia, mild in the presence of type 2 diabetes mellitus. 8. Elevated troponin. 9. Elevated BNP, rule out congestive heart failure. 10. Mild protein calorie malnutrition. Our plan is to admit inpatient. In the emergency room the patient was monitored on ECG. IV access and O2 was given. Labs were drawn. The patient received a bolus of sodium chloride times one and Lopressor 1.25 milligrams IV once. She was also started on Maxipime and azithromycin and cardiology was consulted. Cardiology requested the patient receive adenosine to identify underlying rhythm. Bedside monitoring and procedure table is set up for possible cardiac procedure in the room which would probably be a cardioversion. Cardiology, Dr. Caitlin Cannon is here in the emergency room. The patient will be started on IV amiodarone, will be given IV ampicillin. Sulbactam 3 grams q.6h, p.o. Lopressor, IV azithromycin. Peptic ulcer disease prophylaxis with Pepcid. We will add sequential compression devices for deep venous thrombosis prophylaxis. Place her on a healthy heart diet but that will be after any procedures are done. We will also add Glucerna to her meals to assist with calories and protein. The patient was given one dose of 25 milliequivalents of potassium chloride times one. We will monitor her vital signs every 1-4 hours depending on needs. O2 therapy. We appreciate the consultation and assistance with her plan of care per cardiology. The patient is full code. Full aggressive care and we will follow. Dictated by: MARA Dill Atr Romero MD MNA/KK /3:41 PM /9:26 AM PT is seen & examined d/w PT d/w Sara d/w MARIETTA TRINIDAD see Orders see H&P Pneumonia new onset Afib/flutter w RVR DM abx card input appreciated will; f/u Art Romero MD Nov 27, 2016 18:17 MTDD
[2016-11-28] MEDS: SODIUM CHLOR 0.9% 1000 ML INJ 1,000 ML IV SCH ×2 (11:24→22:11)
[2016-11-28] MEDS: AZITHROMYCIN INJ 500 MG in SODIUM CHLOR 0.9% 250 ML INJ 250 ML IV SCH (12:07)
--- NOTE | 2016-11-28 13:38 | EC ---
Study Study Date:11/28/2016 STUDY CONCLUSIONS SUMMARY - Left ventricle: The cavity size was normal. Wall thickness was increased in a pattern of moderate LVH. Systolic function was normal. The estimated ejection fraction was in the range of 55% to 60%. Wall motion was normal; there were no regional wall motion abnormalities. - Aortic valve: Cusp separation was reduced. Transvalvular velocity was increased less than expected. There was moderate stenosis. Mild regurgitation. Valve area: 1.51cm^2(VTI). Valve area: 1.19cm^2 (Vmax). - Mitral valve: Mild to moderate regurgitation. - Tricuspid valve: Moderate regurgitation. - Pulmonary arteries: Systolic pressure was moderately increased. PA peak pressure: 55mm Hg (S). If LV function is below 40, please consider prescribing an ACEI or ARB or document rationale for non-use. PROCEDURE DATA STUDY STATUS: Elective. Procedure: Transthoracic echocardiography. Image quality was good. Scanning was performed from the parasternal, apical, and subcostal acoustic windows. Study completion: The patient tolerated the procedure well. Transthoracic echocardiography. M-mode, complete 2D, complete spectral Doppler, and color Doppler. Patient status: Inpatient. CARDIAC ANATOMY LEFT VENTRICLE: The cavity size was normal. Wall thickness was increased in a pattern of moderate LVH. Systolic function was normal. The estimated ejection fraction was in the range of 55% to 60%. Wall motion was normal; there were no regional wall motion abnormalities. AORTIC VALVE: Probably trileaflet; moderately thickened, severely calcified leaflets. Cusp separation was reduced. Doppler: Transvalvular velocity was increased less than expected. There was moderate stenosis. Mild regurgitation. Valve area: 1.51cm^2(VTI). Valve area: 1.19cm^2 (Vmax). Mean gradient: 21mm Hg (S). Peak gradient: 37mm Hg (S). AORTA: Aortic root: The aortic root was poorly visualized and normal in size. MITRAL VALVE: Structurally normal valve. Doppler: Transvalvular velocity was within the normal range. There was no evidence for stenosis. Mild to moderate regurgitation. Peak gradient: 5mm Hg (D). LEFT ATRIUM: The atrium was normal in size. RIGHT VENTRICLE: The cavity size was normal. Wall thickness was normal. PULMONIC VALVE: Doppler: Transvalvular velocity was within the normal range. There was no evidence for stenosis. No regurgitation. TRICUSPID VALVE: Structurally normal valve. Doppler: Transvalvular velocity was within the normal range. Moderate regurgitation. PULMONARY ARTERY: The main pulmonary artery was normal-sized. Systolic pressure was moderately increased. RIGHT ATRIUM: The atrium was normal in size. PERICARDIUM: There was no pericardial effusion. SYSTEMIC VEINS: Inferior vena cava: The vessel was normal in size. BASIC MEASUREMENTS ADULT Normal Left ventricle LV internal dimension, ED, chordal level, *40.6 mm 43-52 PLAX LV internal dimension, ES, chordal level, 30.1 mm 23-38 PLAX Fractional shortening, chordal level, PLAX *26 % >29 LV posterior wall thickness, ED 6.48 mm IVS/LVPW ratio, ED *1.82 <1.3 Ventricular septum Septal thickness, ED 11.8 mm Left atrium Anterior-posterior dimension 35 mm Right ventricle RV internal dimension, ED, PLAX 19.7 mm 19-38 DOPPLER MEASUREMENTS ADULT Normal Main pulmonary artery Pressure, S *55 mm Hg =30 Aortic valve Peak velocity, S 296 cm/s Mean velocity, S 215 cm/s VTI, S 54.3 cm Mean gradient, S 21 mm Hg Peak gradient, S 37 mm Hg Valve area, VTI 1.51 cm^2 Valve area, Vmax 1.19 cm^2 Mitral valve Peak E-wave velocity 108 cm/s Peak A-wave velocity 71 cm/s Peak gradient, D 5 mm Hg Peak E/A ratio 1.5 Maximal regurgitant velocity 516 cm/s Tricuspid valve Regurgitant peak velocity 238 cm/s Peak RV-RA gradient, S 23 mm Hg Maximal regurgitant velocity 238 cm/s Systemic veins Estimated CVP 15 mm Hg Right ventricle RV pressure, S *55 mm Hg <30 LEGEND: Mean values are shown as u=mean value. Asterisk (*) shelby values outside specified normal range. Prepared and signed by Ej Cabral [id number]
--- NOTE | 2016-11-28 15:00 | HHI.PR ---
Subjective Remarks resting in bed in rm. mild exertional SOB pale, warm, dry afebrile (Sara Carcamo) Objective Objective Results - Vital Signs Date Time Temp Pulse Resp B/P Pulse Ox O2 Delivery O2 Flow Rate FiO2 11/28/16 14:18 95 11/28/16 13:28 89 11/28/16 12:00 96 11/28/16 11:00 98.4 114 18 104/58 95 11/28/16 11:00 Nasal Cannula 3.00 11/28/16 11:00 114 11/28/16 10:02 87 11/28/16 09:35 92 4.00 11/28/16 09:24 95 11/28/16 08:00 114 11/28/16 08:00 97.8 115 18 114/58 94 11/28/16 06:00 94 11/28/16 05:00 106 11/28/16 04:00 98.4 112 18 107/69 93 11/28/16 04:00 113 11/28/16 03:00 102 11/28/16 02:00 102 11/28/16 01:00 112 11/28/16 00:00 101 11/28/16 00:00 98.0 139 18 121/71 96 11/27/16 23:00 92 11/27/16 22:00 110 11/27/16 21:40 96 Nasal Cannula 5.00 11/27/16 21:00 138 11/27/16 20:00 98.5 139 18 112/69 96 11/27/16 20:00 137 11/27/16 18:26 98.8 140 18 105/75 97 11/27/16 18:00 139 20 103/64 95 Nasal Cannula 6 11/27/16 17:15 139 15 111/60 96 Nasal Cannula 6 11/27/16 16:15 137 107/60 Nasal Cannula 2 11/27/16 16:00 144 25 114/64 96 Nasal Cannula 6 11/27/16 15:30 143 25 119/65 96 Nasal Cannula 2 (Sara Carcamo) Result Diagram: 11/28/163 11/28/16412 ROS General: Fatigue, Weakness, Other (10 point ROs) HEENT: Sore Throat (course) Pulmonary: Cough, SOB (mild), Other (hoarse) Skin: Other (pale) (Sara Carcamo) Physical Exam Physical Exam PHYSICAL EXAMINATION GENERAL: This is a well-developed, well-nourished female who appears to be in no acute distress. She is alert and awake, HEAD: Normocephalic without any lesion or mass noted. Facial features appear symmetric. OROPHARYNGEAL: Oropharynx without erythema or edema. NECK: Supple. No nuchal rigidity or lymphadenopathy. Trachea midline without deviation. CARDIAC: Regular rhythm, regular rate, S1 and S2 are heard. LUNGS: Diminished to auscultation bilaterally. ,mild wheeze, no rhonchi or No use of accessory muscles on inspiration or expiration. ABDOMEN: Soft, nontender, no organomegaly or masses. Bowel sounds are heard in all four quadrants. No rebound. No guarding. EXTREMITIES: no edema. Pulses equal bilateral. NEUROLOGICAL: Patient mood and affect appropriate. No focal deficit SKIN:Warm and moist Objective Remarks Im doing ok (Sara Carcamo) A/P Assessment and Plan 1. Lactic acid sepsis with pneumonia. IV antibiotics, ordered incentive spirometry, instructed on use. 2. Dysrhythmia with atrial flutter, rapid ventricular response rate was controlled with diltiazem, digoxin and amiodarone\ change to PO cardizem, Coumadin, 3. Leukocytosis probably secondary to the pneumonia. IV antibiotics continue 4. Possible urinary tract infection., culture no growth, 5. Anemia, secondary to chronic disease, monitor level with Coumadin dosing 6. Hypokalemia. resolved, monitor 7. Hyperglycemia, mild in the presence of type 2 diabetes mellitus. accuchecks 8. Elevated troponin, hypoxia cause probable 9. Elevated BNP, rule out congestive heart failure. compensated 10. Mild protein calorie malnutrition. Increase protein intake, discussed diet Discussed With: Nurse, Family (pt. ), Other (Dr. Romero, seen to his behalf) ( Sara Carcamo) Assessment and Plan pt is seen & examined d/w PT d/w Sara kilpatrick w above cont abx PT eval & tx card input appreciated cont current tx ss for d/c planning will f/u (Jimbo Romero MD) Sara Carcamo Nov 28, 2016 15:00 Jimbo Romero MD Nov 28, 2016 15:54
[2016-11-28] MEDS: WARFARIN SOD 3 MG TAB PO SCH (16:38)
[2016-11-29] VITALS (25 sets, daily range): BP systolic 100–152; BP diastolic 58–71; PULSE 74–144; RESP 16–20; TEMP 97.8–98.9; O2SAT 91–94
[2016-11-29] MEDS: AMPICILLIN-SULBACTAM INJ 3 GM in SODIUM CHLORIDE 0.9% INJ 100 ML IV SCH ×4 (02:24→20:53)
[2016-11-29] MEDS: DILTIAZEM HCL 90 MG TAB PO SCH ×3 (05:28→17:18)
[2016-11-29] MEDS: ENOXAPARIN SODIUM 60 MG/0.6 ML SYRINGE SQ SCH ×2 (05:29→17:19)
[2016-11-29] MEDS: INSULIN ASPART SUPPLEMENTAL SCALE SQ SCH ×4 (05:34→20:56)
[2016-11-29] MEDS: AMIODARONE 200 MG TAB PO SCH (07:33)
[2016-11-29] MEDS: metFORMIN HCL 500 MG TAB PO SCH ×2 (08:45→20:53)
[2016-11-29] MEDS: FAMOTIDINE 20 MG TAB PO SCH ×2 (08:45→20:53)
[2016-11-29] MEDS: PRAVASTATIN SOD 20 MG TAB PO SCH (08:45)
[2016-11-29] MEDS ORDERED: DIGOXIN 0.5 MG/2 ML VIAL IV PUSH ONE ×2 (10:00→17:00)
[2016-11-29] MEDS ORDERED: INFLUENZA VIRUS VACCINE (QUADRIVALENT) 0.5 ML SYR IM ONE (10:00)
[2016-11-29] MEDS ORDERED: RESP: ALBUTEROL 2.5 MG/IPRATROPIUM 0.5 MG NEB (PRN) NEB (10:00)
[2016-11-29] MEDS ORDERED: AMIODARONE INJ 150 MG in DEXTROSE 5% IN WATER 100ML INJ 97 ML IV ONE ×2 (10:00)
[2016-11-29] MEDS ORDERED: FUROSEMIDE 20 MG/2 ML VIAL IV PUSH ONE (10:00)
--- NOTE | 2016-11-29 10:04 | HHI.PR ---
Subjective Subjective Remarks sob, cough on oxygen at 4L/NC no cp afebrile voice less hoarse tele afib with HR 130s Review of Systems Constitutional Constitutional Remarks 12 point ROS completed, negative except as noted above Vitals/Results Intake & Output 11/28/16 11/28/16 11/29/16 15:00 23:00 07:00 Intake Total 600 ml Output Total 400 ml Balance 200 ml Intake Oral 600 ml Output Urine Total 400 ml # Voids 2 Vital Signs Vital Signs Date Time Temp Pulse Resp B/P Pulse Ox O2 Delivery O2 Flow Rate FiO2 11/29/16 09:04 91 Nasal Cannula 5.00 11/29/16 07:00 Nasal Cannula 4.00 11/29/16 07:00 144 11/29/16 06:00 126 11/29/16 05:00 102 11/29/16 04:00 103 11/29/16 04:00 97.8 95 18 100/60 93 11/29/16 04:00 Nasal Cannula 4.00 11/29/16 03:00 94 11/29/16 02:00 94 11/29/16 01:00 114 11/29/16 00:00 Nasal Cannula 4.00 11/29/16 00:00 95 11/29/16 00:00 98.6 106 18 127/67 91 11/28/16 23:00 104 11/28/16 22:00 142 11/28/16 21:00 104 11/28/16 20:02 93 Nasal Cannula 4.00 11/28/16 20:00 105 11/28/16 20:00 Nasal Cannula 4.00 11/28/16 20:00 98.4 98 18 115/69 93 11/28/16 18:00 103 11/28/16 17:03 103 11/28/16 16:58 103 11/28/16 15:00 Nasal Cannula 3.00 11/28/16 15:00 95 11/28/16 15:00 98.7 109 16 131/53 92 11/28/16 14:18 95 11/28/16 13:28 89 11/28/16 12:00 96 11/28/16 11:00 98.4 114 18 104/58 95 11/28/16 11:00 Nasal Cannula 3.00 11/28/16 11:00 114 11/28/16 10:02 87 CBC/BMP: 11/28/16 0413 11/28/16 0413 Physical Exam General General Appearance: Well Developed, Well Nourished, No Acute Distress, Comfortable Eyes Eye Exam: Pupils Equal, Pupils Reactive Ears & Nose Ears & Nose Exam: Nasal Mucosa [place] Throat Throat Exam: Oral Mucosa [place] & Moist Neck Neck Exam: Neck Supple, [place] Pulmonary Resp Exam: Crackles Cardiology CV Exam: Irregular, Arrhythmia Gastrointestinal/Abdomen GI Exam: Soft, Non-Tender, Bowel Sounds Present, Non-Distended Musculoskeletal MS Exam: Joints Intact Integumentary Skin Exam: Warm, Dry Extremeties Extremities Exam: Pedal Pulses Palpable, Trace Edema Neurologic Neuro Exam: Alert, Awake, Oriented, Speech Clear, Moving All Extremities, No Focal Deficits Psychiatric Psych Exam: Appropriate Responses VTE Prophylaxis VTE Prophylaxis Meds: Heparin, Coumadin Assessment/Plan Problem List: (1) Atrial fibrillation (2) Severe sepsis (3) Tachycardia (4) Pneumonia (5) CHF (congestive heart failure) (6) Diabetes 1.5, managed as type 2 Assessment/Plan remains in afib with RVR continue PO Cardizem and Amidarone continue Cardizem gtt appreciate cardiology input continue Coumadin, Lovenox until INR >2 pharmacy to dose INR daily echo report noted, EF 55-60%, mod. aortic stenosis noted with rales, CHF exac./fluid overload stop IVF Lasix 20 mg IVP now echo as noted above continue with accuchecks AC/HS with ISS continue abx, follow cultures add duonebs PRN Antitussives PRN Depressed TSH, check free T3 and T4 Heparin/Lovenox for DVT prophylaxis Labs in am D/W RN D/W Dr. Romero D/W pt this pt. was seen by myself and Dr. Romero, this note is written on his behalf. Problem Qualifiers (1) Atrial fibrillation: Qualified Code: I48.91 - Atrial fibrillation, unspecified type (2) Pneumonia: Qualified Code: J18.9 - Pneumonia of both lower lobes due to infectious organism (3) CHF (congestive heart failure): Qualified Code: I50.9 - Acute congestive heart failure, unspecified congestive heart failure type Raine Zavala Nov 29, 2016 10:04
[2016-11-29 11:10] LABS: PROTHROMBIN TIME - PATIENT 11.5 SEC (9.8-11.6)
[2016-11-29] MEDS: AZITHROMYCIN INJ 500 MG in SODIUM CHLOR 0.9% 250 ML INJ 250 ML IV SCH (11:12)
--- NOTE | 2016-11-29 11:46 | PD.CARD.PN ---
Subjective Subjective Remarks Doesn't feel well. Denies pain, dyspnea, dizziness, palpitations, nausea. Objective Medications Item Value Date Time Amiodarone HCl 200 mg 11/29/16 0900 (Cordarone) DAILY/PO 11/29/16 0733 Warfarin Sodium 3 mg 11/28/16 1600 (Coumadin) DAILY@16/PO 11/28/16 1638 Pravastatin Sodium 20 mg 11/28/16 0900 (Pravachol) DAILY/PO 11/29/16 0845 Diltiazem HCl 90 mg 11/28/16 0730 (Cardizem) Q6HR/PO 11/29/16 1112 Diltiazem HCl 125 125 ml @ 0 mls/hr 11/27/16 1800 mg/Sodium Chloride TITRATE/IV 11/28/16 0526 Amiodarone HCl 250 ml @ 0 mls/hr 11/27/16 1600 450 mg/Dextrose CONTINUOUS/IV Enoxaparin Sodium 60 mg 11/27/16 1800 (Lovenox Inj) Q12H/SQ 11/29/16 0529 Vital Signs / I&O Vital Signs Date Time Temp Pulse Resp B/P Pulse Ox O2 Delivery O2 Flow Rate FiO2 11/29/16 09:04 91 Nasal Cannula 5.00 11/29/16 07:00 Nasal Cannula 4.00 11/29/16 07:00 98.0 144 18 125/66 93 11/29/16 07:00 144 11/29/16 06:00 126 11/29/16 05:00 102 11/29/16 04:00 103 11/29/16 04:00 97.8 95 18 100/60 93 11/29/16 04:00 Nasal Cannula 4.00 11/29/16 03:00 94 11/29/16 02:00 94 11/29/16 01:00 114 11/29/16 00:00 Nasal Cannula 4.00 11/29/16 00:00 95 11/29/16 00:00 98.6 106 18 127/67 91 11/28/16 23:00 104 11/28/16 22:00 142 11/28/16 21:00 104 11/28/16 20:02 93 Nasal Cannula 4.00 11/28/16 20:00 105 11/28/16 20:00 Nasal Cannula 4.00 11/28/16 20:00 98.4 98 18 115/69 93 11/28/16 18:00 103 11/28/16 17:03 103 11/28/16 16:58 103 11/28/16 15:00 Nasal Cannula 3.00 11/28/16 15:00 95 11/28/16 15:00 98.7 109 16 131/53 92 11/28/16 14:18 95 11/28/16 13:28 89 11/28/16 12:00 96 I/O 11/28/16 11/28/16 11/28/16 11/29/16 11/29/16 11/29/16 07:00 15:00 23:00 07:00 15:00 23:00 Intake Total 600 ml Output Total 400 ml Balance 200 ml Intake Oral 600 ml Output Urine Total 400 ml # Voids 2 Physical Exam GENERAL: Well developed, well nourished. No acute distress. HEENT: Jugular venous pressure is normal. CHEST: Lungs clear to auscultation anteriorly. CARDIAC: Tachycardic regular rhythm without S3, S4, or murmur. ABDOMEN: Soft, nontender, no hepatosplenomegaly. Bowel sounds present. EXTREMITIES: No clubbing, cyanosis, or edema. Laboratory Laboratory Tests Test 11/29/16 10:45 Prothrombin Time 11.5 SEC Prothromb Time International 1.0 RATIO Ratio Free Thyroxine 1.71 NG/DL Assessment and Plan Problem List: (1) Paroxysmal atrial fibrillation Assessment and Plan: Tachycardic this morning 130's 140's, better after boluses IV Amiodarone, digoxin. Current rhythm more consistent with atrial tachycardia. Echo reportedly shows normal left ventricular function, no severe valvular abnormalities. No overt CHF or evidence for ACS. Thromboembolic risk overall moderately increased. REC continue IV diltiazem, Amiodarone continue warfarin to achieve INR 2-2.5 continue Lovenox until INR therapeutic Code Status full code Discussed Condition With patient Richardson Ferguson MD Nov 29, 2016 11:46
--- NOTE | 2016-11-29 13:47 | EKG ---
Date Performed: 11/29/2016 Time Performed: 10:45:34 PTAGE: 86 years EKG: BASELINE ARTIFACT PRESENT. Atrial tachycardia versus atrial flutter with 2-1 AV block Possi ble anterior infarct - age undetermined Nonspecific ST-T wave changes Abnormal ECG NO SIGNIFICANT MAGUE NGE FROM PRIOR ELECTROCARDIOGRAM. PREVIOUS TRACING : 11/27/2016 09.54 DOCTOR: Brandon Patel Interpretating Date/Time 11/29/2016 13:44:49
[2016-11-29] MEDS: WARFARIN SOD 3 MG TAB PO SCH (16:12)
--- NOTE | 2016-11-29 19:55 | EKG ---
Date Performed: 11/29/2016 Time Performed: 18:10:08 PTAGE: 86 years EKG: Atrial fibrillation Possible inferior infarct - age undetermined Possible anterior infarct - age undetermined Nonspecific ST-T wave changes COMPARED TO PRIOR ELECTROCARDIOGRAM, Rate has slowed . Abnormal ECG PREVIOUS TRACING : 11/29/2016 10.45 DOCTOR: Brandon Patel Interpretating Date/Time 11/29/2016 19:54:54
[2016-11-30] VITALS (25 sets, daily range): BP systolic 118–153; BP diastolic 50–66; PULSE 60–106; RESP 20; TEMP 97.5–98.4; O2SAT 91–96
[2016-11-30] MEDS: DILTIAZEM HCL 90 MG TAB PO SCH ×2 (00:30→06:03)
[2016-11-30] MEDS: AMPICILLIN-SULBACTAM INJ 3 GM in SODIUM CHLORIDE 0.9% INJ 100 ML IV SCH ×4 (02:00→20:12)
[2016-11-30] MEDS: ENOXAPARIN SODIUM 60 MG/0.6 ML SYRINGE SQ SCH ×2 (06:00→17:49)
[2016-11-30] MEDS: INSULIN ASPART SUPPLEMENTAL SCALE SQ SCH ×4 (06:04→20:21)
[2016-11-30 06:59] LABS: HEMATOCRIT 32.3 % (35.0-46.0); MEAN CORPUSCULAR HEMOGLOBIN 31.4 PG (27.0-34.0); MEAN CORPUSCULAR HGB CONC 33.4 % (32.0-36.0); PLATELET COUNT 402 TH/MM3 (150-450); RED BLOOD COUNT 3.44 MIL/MM3 (4.00-5.30); RED CELL DISTRIBUTION WIDTH 13.3 % (11.6-17.2); REVIEW FLAG FINAL; WHITE BLOOD COUNT 15.3 TH/MM3 (4.0-11.0)
[2016-11-30 07:07] LABS: INTERNATIONAL NORMALIZED RATIO 1.2 RATIO; PROTHROMBIN TIME - PATIENT 13.4 SEC (9.8-11.6)
[2016-11-30 07:25] LABS: BICARBONATE 25.9 MEQ/L (21.0-32.0); POTASSIUM 3.5 MEQ/L (3.5-5.1)
[2016-11-30] MEDS: PRAVASTATIN SOD 20 MG TAB PO SCH (08:02)
[2016-11-30] MEDS: FAMOTIDINE 20 MG TAB PO SCH ×2 (08:02→20:13)
[2016-11-30] MEDS: AMIODARONE 200 MG TAB PO SCH (08:02)
[2016-11-30] MEDS: metFORMIN HCL 500 MG TAB PO SCH ×2 (08:02→20:11)
[2016-11-30] MEDS: DILTIAZEM INJ 125 MG in SODIUM CHLORIDE 0.9% INJ 100 ML IV SCH (08:21)
--- NOTE | 2016-11-30 08:24 | HHI.PR ---
Subjective Subjective Remarks sob, cough slightly improved on oxygen at 5L/NC, sats 95% no cp afebrile voice less hoarse HR improved down to 90s, on cardizem at 5/hr Review of Systems Constitutional Constitutional Remarks 12 point ROS completed, negative except as noted above Vitals/Results Intake & Output 11/29/16 11/29/16 11/30/16 15:00 23:00 07:00 Intake Total 720 ml 540 ml Output Total 1350 ml Balance -630 ml 540 ml Intake Oral 720 ml 240 ml IV Total 300 ml Output Urine Total 1350 ml # Voids 2 Vital Signs Vital Signs Date Time Temp Pulse Resp B/P Pulse Ox O2 Delivery O2 Flow Rate FiO2 11/30/16 06:00 81 11/30/16 05:00 88 11/30/16 04:00 94 Nasal Cannula 5.00 11/30/16 04:00 98.2 88 20 128/58 94 11/30/16 04:00 79 11/30/16 02:00 81 11/30/16 01:00 76 11/30/16 00:00 98.4 78 20 139/62 92 11/30/16 00:00 78 11/30/16 00:00 92 Nasal Cannula 5.00 11/29/16 22:00 75 11/29/16 21:00 74 11/29/16 20:30 92 Nasal Cannula 5.00 11/29/16 20:00 92 Nasal Cannula 5.00 11/29/16 20:00 98.4 88 20 136/58 91 11/29/16 20:00 88 11/29/16 19:00 88 11/29/16 18:00 77 11/29/16 17:00 92 11/29/16 16:00 86 11/29/16 15:00 120 11/29/16 15:00 98.9 120 18 133/69 93 11/29/16 15:00 Nasal Cannula 4.00 11/29/16 14:00 130 11/29/16 13:00 131 11/29/16 12:00 85 11/29/16 11:00 102 11/29/16 11:00 Nasal Cannula 4.00 11/29/16 11:00 98.0 116 16 152/71 94 11/29/16 10:00 136 11/29/16 09:04 91 Nasal Cannula 4.00 11/29/16 09:00 142 CBC/BMP: 11/30/16 0648 11/30/16 0648 Lab Results Laboratory Tests Test 11/29/16 11/30/16 10:45 06:48 Prothrombin Time 11.5 SEC 13.4 SEC Prothromb Time International 1.0 RATIO 1.2 RATIO Ratio Free Thyroxine 1.71 NG/DL Total Triiodothyronine 70 NG/DL White Blood Count 15.3 TH/MM3 Red Blood Count 3.44 MIL/MM3 Hemoglobin 10.8 GM/DL Hematocrit 32.3 % Mean Corpuscular Volume 94.0 FL Mean Corpuscular Hemoglobin 31.4 PG Mean Corpuscular Hemoglobin 33.4 % Concent Red Cell Distribution Width 13.3 % Platelet Count 402 TH/MM3 Mean Platelet Volume 8.0 FL Sodium Level 140 MEQ/L Potassium Level 3.5 MEQ/L Chloride Level 105 MEQ/L Carbon Dioxide Level 25.9 MEQ/L Anion Gap 9 MEQ/L Blood Urea Nitrogen 10 MG/DL Creatinine 0.61 MG/DL Estimat Glomerular Filtration 93 ML/MIN Rate Random Glucose 120 MG/DL Calcium Level 8.5 MG/DL Physical Exam General General Appearance: Well Developed, Well Nourished, No Acute Distress, Comfortable Eyes Eye Exam: Pupils Equal, Pupils Reactive Ears & Nose Ears & Nose Exam: Nasal Mucosa [place] Throat Throat Exam: Oral Mucosa [place] & Moist Neck Neck Exam: Neck Supple Pulmonary Resp Exam: Crackles Cardiology CV Exam: Irregular, Arrhythmia Gastrointestinal/Abdomen GI Exam: Soft, Non-Tender, Bowel Sounds Present, Non-Distended Musculoskeletal MS Exam: Joints Intact Integumentary Skin Exam: Warm, Dry Extremeties Extremities Exam: Pedal Pulses Palpable, Trace Edema Neurologic Neuro Exam: Alert, Awake, Oriented, Speech Clear, Moving All Extremities, No Focal Deficits Psychiatric Psych Exam: Appropriate Responses VTE Prophylaxis VTE Prophylaxis Meds: Heparin, Coumadin Assessment/Plan Problem List: (1) Atrial fibrillation (2) Severe sepsis (3) Tachycardia (4) Pneumonia (5) CHF (congestive heart failure) (6) Diabetes 1.5, managed as type 2 Assessment/Plan afib, HR improved. Was given Dig yesterday continue PO Cardizem and Amidarone continue Cardizem gtt, down to 5/hr appreciate cardiology input continue Coumadin, Lovenox until INR >2 pharmacy to dose INR daily, today 1.2 Inc. Coumadin to 5 mg po daily echo report noted, EF 55-60%, mod. aortic stenosis remains with rales, SOB will check CXR add Lasix 20 mg PO BID continue with accuchecks AC/HS with ISS continue abx, follow cultures WBC 12.9 duonebs PRN Antitussives PRN Depressed TSH, free T3 and T4 results noted Coumadin/Lovenox for DVT prophylaxis Replace K Labs in am PT eval and tx Pt. not ready for discharge D/W RN D/W Dr. Romero D/W pt this pt. was seen by myself and Dr. Romero, this note is written on his behalf. Problem Qualifiers (1) Atrial fibrillation: Qualified Code: I48.91 - Atrial fibrillation, unspecified type (2) Pneumonia: Qualified Code: J18.9 - Pneumonia of both lower lobes due to infectious organism (3) CHF (congestive heart failure): Qualified Code: I50.9 - Acute congestive heart failure, unspecified congestive heart failure type Raine Zavala [facility] Nov 30, 2016 08:24
[2016-11-30] MEDS ORDERED: POTASSIUM CHLORIDE 25 MEQ EFFERVESCENT TAB PO ONE (08:45)
[2016-11-30] MEDS: FUROSEMIDE 20 MG TAB PO SCH ×2 (09:00→17:48)
--- NOTE | 2016-11-30 09:11 | PD.CARD.PN ---
Subjective Subjective Remarks Feeling "better". Dyspnea slowly improving. No CP, abdominal pain, nausea, dizziness, palpitations. Slept well. Objective Medications Item Value Date Time Warfarin Sodium 5 mg 11/30/16 1600 (Coumadin) DAILY@16/PO Furosemide 20 mg 11/30/16 0900 (Lasix) BID@09,18/PO Amiodarone HCl 200 mg 11/29/16 0900 (Cordarone) DAILY/PO 11/30/16 0802 Pravastatin Sodium 20 mg 11/28/16 0900 (Pravachol) DAILY/PO 11/30/16 0802 Diltiazem HCl 90 mg 11/28/16 0730 (Cardizem) Q6HR/PO 11/30/16 0603 Enoxaparin Sodium 60 mg 11/27/16 1800 (Lovenox Inj) Q12H/SQ 11/30/16 0600 Diltiazem HCl 125 125 ml @ 0 mls/hr 11/27/16 1800 mg/Sodium Chloride TITRATE/IV 11/30/16 0821 Vital Signs / I&O Vital Signs Date Time Temp Pulse Resp B/P Pulse Ox O2 Delivery O2 Flow Rate FiO2 11/30/16 06:00 81 11/30/16 05:00 88 11/30/16 04:00 94 Nasal Cannula 5.00 11/30/16 04:00 98.2 88 20 128/58 94 11/30/16 04:00 79 11/30/16 02:00 81 11/30/16 01:00 76 11/30/16 00:00 98.4 78 20 139/62 92 11/30/16 00:00 78 11/30/16 00:00 92 Nasal Cannula 5.00 11/29/16 22:00 75 11/29/16 21:00 74 11/29/16 20:30 92 Nasal Cannula 5.00 11/29/16 20:00 92 Nasal Cannula 5.00 11/29/16 20:00 98.4 88 20 136/58 91 11/29/16 20:00 88 11/29/16 19:00 88 11/29/16 18:00 77 11/29/16 17:00 92 11/29/16 16:00 86 11/29/16 15:00 120 11/29/16 15:00 98.9 120 18 133/69 93 11/29/16 15:00 Nasal Cannula 4.00 11/29/16 14:00 130 11/29/16 13:00 131 11/29/16 12:00 85 11/29/16 11:00 102 11/29/16 11:00 Nasal Cannula 4.00 11/29/16 11:00 98.0 116 16 152/71 94 11/29/16 10:00 136 I/O 11/29/16 11/29/16 11/29/16 11/30/16 11/30/16 11/30/16 07:00 15:00 23:00 07:00 15:00 23:00 Intake Total 720 ml 540 ml Output Total 1350 ml Balance -630 ml 540 ml Intake Oral 720 ml 240 ml IV Total 300 ml Output Urine Total 1350 ml # Voids 2 2 Physical Exam GENERAL: Well developed, well nourished. No acute distress. HEENT: Jugular venous pressure is normal. CHEST: Lungs clear to auscultation anteriorly. CARDIAC: Irregular rhythm without S3, S4, or murmur. ABDOMEN: Soft, nontender, no hepatosplenomegaly. Bowel sounds present. EXTREMITIES: No clubbing, cyanosis, or edema. Laboratory Laboratory Tests Test 11/29/16 11/30/16 10:45 06:48 Prothrombin Time 11.5 SEC 13.4 SEC Prothromb Time International 1.0 RATIO 1.2 RATIO Ratio Free Thyroxine 1.71 NG/DL Total Triiodothyronine 70 NG/DL White Blood Count 15.3 TH/MM3 Red Blood Count 3.44 MIL/MM3 Hemoglobin 10.8 GM/DL Hematocrit 32.3 % Mean Corpuscular Volume 94.0 FL Mean Corpuscular Hemoglobin 31.4 PG Mean Corpuscular Hemoglobin 33.4 % Concent Red Cell Distribution Width 13.3 % Platelet Count 402 TH/MM3 Mean Platelet Volume 8.0 FL Sodium Level 140 MEQ/L Potassium Level 3.5 MEQ/L Chloride Level 105 MEQ/L Carbon Dioxide Level 25.9 MEQ/L Anion Gap 9 MEQ/L Blood Urea Nitrogen 10 MG/DL Creatinine 0.61 MG/DL Estimat Glomerular Filtration 93 ML/MIN Rate Random Glucose 120 MG/DL Calcium Level 8.5 MG/DL Assessment and Plan Problem List: (1) Paroxysmal atrial fibrillation Assessment and Plan: HR's now under good control. Patient symptomatically improving. Echo reportedly shows normal left ventricular function, no severe valvular abnormalities. No overt CHF or evidence for ACS. Thromboembolic risk overall moderately increased. INR still subtherapeutic. REC stop IV Cardizem continue oral Cardizem, change to long acting form continue oral Amiodarone continue anticoagulation therapy add beta ubaldo Dr. Costello to see PRN over the weekend Code Status full code Discussed Condition With patient Richardson Ferguson MD Nov 30, 2016 09:11
[2016-11-30] MEDS: DILTIAZEM-CD 180 MG CAP ER PO SCH (09:30)
[2016-11-30] MEDS: METOPROLOL TARTRATE 25 MG TAB PO SCH ×2 (09:30→20:11)
--- NOTE | 2016-11-30 10:14 | RADRPT ---
EXAM DATE/TIME: 11/30/2016 09:27 [facility] COMPARISON: CHEST SINGLE AP, November 27, 2016, 10:07. INDICATIONS : Short of breath, evaluate congestive heart failure MEDICAL HISTORY : Congestive heart failure. Pneumonia, tachycardia SURGICAL HISTORY : None. ENCOUNTER: Subsequent ACUITY: 3 days PAIN SCORE: 0/10 LOCATION: Bilateral chest FINDINGS: There are increasing bibasilar parenchymal changes present in both bases. Heart remains enlarged. M ild interstitial edema is present. There is no pneumothorax. CONCLUSION: 1. Increasing bibasilar consolidative changes. 2. Probable worsening congestive failure. Cesar Avelar MD FACR on November 30, 2016 at 10:05 Board Certified Radiologist. This report was verified electronically.
[2016-11-30] MEDS: AZITHROMYCIN INJ 500 MG in SODIUM CHLOR 0.9% 250 ML INJ 250 ML IV SCH (11:59)
[2016-11-30] MEDS: FUROSEMIDE 20 MG/2 ML VIAL IV PUSH SCH ×2 (13:00→17:49)
[2016-11-30] MEDS: WARFARIN SOD 5 MG TAB PO SCH (16:20)
[2016-11-30] MEDS: METHIMAZOLE 5 MG TAB PO SCH ×2 (16:20→20:11)
[2016-11-30] MEDS: guaiFENesin/DEXTROMETHORPHAN 200 MG/20 MG/10 ML CUP PO PRN (17:48)
[2016-11-30] MEDS: POTASSIUM CHLORIDE 20 MEQ CONTROLLED RELEASE TAB PO SCH (20:12)
[2016-12-01] VITALS (25 sets, daily range): BP systolic 112–141; BP diastolic 51–76; PULSE 56–99; RESP 16–20; TEMP 97.4–98.2; O2SAT 92–95
[2016-12-01] MEDS: AMPICILLIN-SULBACTAM INJ 3 GM in SODIUM CHLORIDE 0.9% INJ 100 ML IV SCH ×5 (02:16→20:52)
[2016-12-01] MEDS: ENOXAPARIN SODIUM 60 MG/0.6 ML SYRINGE SQ SCH ×2 (05:21→17:43)
[2016-12-01] MEDS: METHIMAZOLE 5 MG TAB PO SCH ×3 (05:21→20:52)
[2016-12-01] MEDS: INSULIN ASPART SUPPLEMENTAL SCALE SQ SCH ×4 (07:00→20:55)
[2016-12-01] MEDS: FAMOTIDINE 20 MG TAB PO SCH ×2 (09:00→20:52)
[2016-12-01] MEDS: FUROSEMIDE 20 MG/2 ML VIAL IV PUSH SCH ×2 (09:00→17:43)
[2016-12-01] MEDS: AMIODARONE 200 MG TAB PO SCH (09:47)
[2016-12-01] MEDS: metFORMIN HCL 500 MG TAB PO SCH ×2 (09:47→20:52)
[2016-12-01] MEDS: METOPROLOL TARTRATE 25 MG TAB PO SCH ×2 (09:48→20:52)
[2016-12-01] MEDS: PRAVASTATIN SOD 20 MG TAB PO SCH (09:48)
[2016-12-01] MEDS: DILTIAZEM-CD 180 MG CAP ER PO SCH (09:48)
[2016-12-01] MEDS: FUROSEMIDE 20 MG TAB PO SCH ×2 (09:48→17:43)
[2016-12-01] MEDS: POTASSIUM CHLORIDE 20 MEQ CONTROLLED RELEASE TAB PO SCH ×2 (09:49→20:52)
[2016-12-01] MEDS: AZITHROMYCIN INJ 500 MG in SODIUM CHLOR 0.9% 250 ML INJ 250 ML IV SCH (12:53)
[2016-12-01 12:55] LABS: HEMATOCRIT 30.9 % (35.0-46.0); MEAN CELL VOLUME 94.8 FL (80.0-100.0); MEAN CORPUSCULAR HEMOGLOBIN 31.3 PG (27.0-34.0); MEAN CORPUSCULAR HGB CONC 33.1 % (32.0-36.0); PLATELET COUNT 440 TH/MM3 (150-450); RED BLOOD COUNT 3.26 MIL/MM3 (4.00-5.30); RED CELL DISTRIBUTION WIDTH 13.5 % (11.6-17.2); REVIEW FLAG FINAL; WHITE BLOOD COUNT 12.2 TH/MM3 (4.0-11.0)
[2016-12-01 12:57] LABS: PROTHROMBIN TIME - PATIENT 22.7 SEC (9.8-11.6)
[2016-12-01 13:17] LABS: POTASSIUM 3.3 MEQ/L (3.5-5.1)
[2016-12-01] MEDS: WARFARIN SOD 5 MG TAB PO SCH (16:32)
--- NOTE | 2016-12-01 18:03 | HHI.PR ---
Subjective Remarks 86yr old female seen and examined today. in room. sob, cough slightly improved on oxygen at 4L/NC, sats 95% no cp afebrile voice less hoarse HR improved down to 60s, on po CCB/BB. Objective Objective Results - Vital Signs Date Time Temp Pulse Resp B/P Pulse Ox O2 Delivery O2 Flow Rate FiO2 12/01/16 17:00 65 12/01/16 16:00 61 12/01/16 15:00 62 12/01/16 15:00 Nasal Cannula 4.00 Humidified 12/01/16 15:00 97.9 63 17 118/51 92 12/01/16 14:00 60 12/01/16 13:00 62 12/01/16 12:00 63 12/01/16 11:00 99 12/01/16 11:00 95 Nasal Cannula 4.00 12/01/16 11:00 97.4 56 16 119/56 92 12/01/16 10:00 78 12/01/16 09:21 94 Nasal Cannula 5.00 12/01/16 09:00 72 12/01/16 08:00 68 12/01/16 07:30 95 Nasal Cannula 4.00 Humidified 12/01/16 07:00 66 12/01/16 07:00 97.9 68 18 128/59 95 12/01/16 06:00 65 12/01/16 05:00 69 12/01/16 04:00 Nasal Cannula 4.00 12/01/16 04:00 73 12/01/16 04:00 98.1 73 18 130/65 93 12/01/16 03:00 75 12/01/16 02:00 74 12/01/16 01:00 76 12/01/16 00:00 97.8 72 18 112/53 94 12/01/16 00:00 72 12/01/16 00:00 Nasal Cannula 4.00 11/30/16 23:00 73 11/30/16 22:00 75 11/30/16 21:00 77 11/30/16 20:10 Nasal Cannula 5.00 11/30/16 20:00 98.2 72 20 135/66 93 11/30/16 20:00 Nasal Cannula 5.00 11/30/16 20:00 72 I/O 4/28/17 4/2811/30/16 12/01/16 12/01/16 12/01/16 07:00 15:00 23:00 07:00 15:00 23:00 Intake Total 540 ml 1170 ml 680 ml 185 ml Output Total 3 ml 1100 ml Balance 540 ml 1167 ml -420 ml 185 ml Intake Oral 240 ml 720 ml 480 ml IV Total 300 ml 450 ml 200 ml 185 ml Output Urine Total 1100 ml Stool Total 3 ml # Voids 2 6 4 # Bowel Movements 1 1 Result Diagram: 12/01/16 1211 12/01/16 1211 Other Results Laboratory Tests Test 12/01/16 12:11 White Blood Count 12.2 Red Blood Count 3.26 Hemoglobin 10.2 Hematocrit 30.9 Mean Corpuscular Volume 94.8 Mean Corpuscular Hemoglobin 31.3 Mean Corpuscular Hemoglobin 33.1 Concent Red Cell Distribution Width 13.5 Platelet Count 440 Mean Platelet Volume 8.3 Prothrombin Time 22.7 Prothromb Time International 2.0 Ratio Sodium Level 138 Potassium Level 3.3 Chloride Level 100 Carbon Dioxide Level 31.0 Anion Gap 7 Blood Urea Nitrogen 11 Creatinine 0.65 Estimat Glomerular Filtration 86 Rate Random Glucose 119 Calcium Level 8.7 Date/Time Procedure Status Source Growth 11/27/16 10:45 Urine Culture - Final Complete Urine Catheterized Urine NO GROWTH IN 48 HOURS. 11/27/16 10:15 Aerobic Blood Culture - Preliminary Resulted Blood Peripheral NO GROWTH IN 4 DAYS 11/27/16 10:15 Anaerobic Blood Culture - Preliminary Resulted Blood Peripheral NO GROWTH IN 4 DAYS 11/27/16 10:10 Influenza Types A,B Antigen ([facility]) - Final Complete Nasal Aspirate NEGATIVE FOR FLU A AND B ANTIGEN.... ROS General: Weakness HEENT: Sore Throat Cardiac: No: Chest Pain, Edema, Palpitations, Other Pulmonary: SOB, Wheezing GI: No: Abdominal Pain, BM, Diarrhea, N/V, Other /NANNY BABYSITTER: No: Dysuria, Urgency, Other Neuro/MS: No: Lightheaded, Confusion, Other Psych: No: Anxiety, Depression, Other Skin: No: Itching, Rash, Other Physical Exam Physical Exam PHYSICAL EXAMINATION GENERAL: This is a well-developed, well-nourished female who appears to be in no acute distress. She is alert and awake. HEAD: Normocephalic without any lesion or mass noted. Facial features appear symmetric. EYES: Perrla, Normal eye movement. OROPHARYNGEAL: Oropharynx without erythema or edema. MOUTH/THROAT: Tongue midline. NECK: Supple. Trachea midline without deviation. CARDIAC: Irregularly irregular. LUNGS: Decreased bs sabina. Basilar rales. ABDOMEN: Soft, nontender, no organomegaly or masses. Bowel sounds are heard in all four quadrants. No rebound. No guarding. EXTREMITIES: No CCE. NEUROLOGICAL: Patient mood and affect appropriate. SKIN:Warm and moist PSYCH: Mood and affect appropriate A/P Assessment and Plan (1) Atrial fibrillation (2) Severe sepsis (3) Tachycardia (4) Pneumonia (5) CHF (congestive heart failure) (6) Diabetes 1.5, managed as type 2 Assessment/Plan afib, HR improved. Was given dig on 11/29/16. continue PO Cardizem and metoprolol. appreciate cardiology input INR is 2.0. Will dc lovenox. Continue coumadin. pharmacy to dose echo report noted, EF 55-60%, mod. aortic stenosis remains with rales, SOB Worsening effusion. Increase IV lasix to 40mg. Reepat cxr in am. continue with accuchecks AC/HS with ISS continue abx, follow cultures WBC 12.2 duonebs PRN Antitussives PRN Depressed TSH, free T3 and T4 results noted Coumadin for DVT prophylaxis Replace K Labs in am PT eval and tx Hyperthyroidism continue beta ubaldo, Continue Tapazole, recommend outpatient endocrine evaluation for further treatment of hyperthyroidism Pt. not ready for discharge mountain services manager for discharge planning D/W RN D/W pt/ Discussed With: Nurse, Family (pt. ), Other (Dr. Romero, seen to his behalf) Desirae Pressley MD Dec 01, 2016 18:03
[2016-12-01] MEDS: guaiFENesin/DEXTROMETHORPHAN 200 MG/20 MG/10 ML CUP PO PRN (23:53)
[2016-12-02] VITALS (26 sets, daily range): BP systolic 110–139; BP diastolic 51–70; PULSE 54–92; RESP 17–20; TEMP 97.8–98; O2SAT 92–95
[2016-12-02] MEDS: AMPICILLIN-SULBACTAM INJ 3 GM in SODIUM CHLORIDE 0.9% INJ 100 ML IV SCH ×4 (02:51→20:05)
--- NOTE | 2016-12-02 04:27 | RADRPT ---
EXAM DATE/TIME: 12/02/2016 03:42 [facility] COMPARISON: CHEST SINGLE AP, November 30, 2016, 9:27. INDICATIONS : Shortness of breath, possible pulmonary disease. MEDICAL HISTORY : Congestive heart failure. SURGICAL HISTORY : None. ENCOUNTER: Subsequent ACUITY: 4 - 6 days PAIN SCORE: 0/10 LOCATION: Bilateral chest FINDINGS: Small to moderate bilateral pleural effusions with basilar consolidation again noted, slightly improv ed on the right and not significantly changed on the left. No pneumothorax. Heart size stable, within normal limits. CONCLUSION: Minimally improved, mainly on the right. Bibasilar consolidation and effusions persist. Delta Harmon MD on December 02, 2016 at 4:24 Board Certified Radiologist. This report was verified electronically.
[2016-12-02] MEDS: INSULIN ASPART SUPPLEMENTAL SCALE SQ SCH ×4 (06:13→20:14)
[2016-12-02] MEDS: METHIMAZOLE 5 MG TAB PO SCH ×3 (06:13→20:06)
[2016-12-02 07:14] LABS: INTERNATIONAL NORMALIZED RATIO 2.3 RATIO; PROTHROMBIN TIME - PATIENT 26.9 SEC (9.8-11.6)
[2016-12-02 07:27] LABS: POTASSIUM 3.7 MEQ/L (3.5-5.1)
[2016-12-02 07:51] LABS: AUTOMATED NEUTROPHIL # 8.5 TH/MM3 (1.8-7.7); BASOPHIL % 0.3 % (0.0-2.0); EOSINOPHIL # 0.3 TH/MM3 (0-0.4); EOSINOPHIL % 2.1 % (0.0-4.0); HEMATOCRIT 32.3 % (35.0-46.0); LYMPH % 15.2 % (9.0-44.0); LYMPHOCYTE # 1.8 TH/MM3 (1.0-4.8); MEAN CELL VOLUME 93.9 FL (80.0-100.0); MEAN CORPUSCULAR HEMOGLOBIN 31.1 PG (27.0-34.0); MEAN CORPUSCULAR HGB CONC 33.1 % (32.0-36.0); MONO % 11.2 % (0.0-8.0); NEUT % 71.2 % (16.0-70.0); PLATELET COUNT 477 TH/MM3 (150-450); RED BLOOD COUNT 3.45 MIL/MM3 (4.00-5.30); RED CELL DISTRIBUTION WIDTH 13.3 % (11.6-17.2)
[2016-12-02 08:11] LABS: HEMO FLAGS AUTO DIFF
[2016-12-02] MEDS: AMIODARONE 200 MG TAB PO SCH (08:38)
[2016-12-02] MEDS: PRAVASTATIN SOD 20 MG TAB PO SCH (08:38)
[2016-12-02] MEDS: POTASSIUM CHLORIDE 20 MEQ CONTROLLED RELEASE TAB PO SCH ×2 (08:38→20:06)
[2016-12-02] MEDS: metFORMIN HCL 500 MG TAB PO SCH ×2 (08:38→20:05)
[2016-12-02] MEDS: FUROSEMIDE 20 MG/2 ML VIAL IV PUSH SCH ×2 (08:39→17:10)
[2016-12-02] MEDS: METOPROLOL TARTRATE 25 MG TAB PO SCH ×2 (08:39→20:06)
[2016-12-02] MEDS: DILTIAZEM-CD 180 MG CAP ER PO SCH (08:39)
[2016-12-02] MEDS: FAMOTIDINE 20 MG TAB PO SCH ×2 (08:40→20:06)
[2016-12-02] MEDS: AZITHROMYCIN INJ 500 MG in SODIUM CHLOR 0.9% 250 ML INJ 250 ML IV SCH (11:53)
[2016-12-02 14:31] LABS: BANDS 1 % (0-6); CORRECTED NUCLEATED RBC 2 /100 WBC (0-0); EOSINOPHILS 3 % (0-4); METAMYELOCYTES 2 % (0-1); MYELOCYTES 3 % (0-0); NEUTROPHIL # MANUAL DIFF 7.3 TH/MM3 (1.8-7.7); PLASMA CELLS 2 % (0-0); PLATELET ESTIMATE SMEAR HIGH (NORMAL); PLATELET MORPHOLOGY NORMAL (NORMAL); POLYS (SEG NEUTROPHILS) 55 % (16-70); SCAN/DIFF FINAL DIFF MANUAL; WBC DIFF SAMPLE 100
--- NOTE | 2016-12-02 16:50 | HHI.PR ---
Subjective Remarks 86yr old female seen and examined today. in room. sob, cough slightly improved on oxygen at 4L/NC, sats 95% no cp afebrile voice less hoarse HR improved down to 60s, on po CCB/BB. Objective Objective Results - Vital Signs Date Time Temp Pulse Resp B/P Pulse Ox O2 Delivery O2 Flow Rate FiO2 12/02/16 16:00 58 12/02/16 15:00 58 12/02/16 15:00 97.8 56 17 110/51 94 12/02/16 15:00 94 Nasal Cannula 3.00 Humidified 12/02/16 14:00 55 12/02/16 13:01 54 12/02/16 12:00 55 12/02/16 11:02 95 Nasal Cannula 4.00 Humidified 12/02/16 11:01 98.0 63 17 116/57 95 12/02/16 11:00 60 12/02/16 10:00 63 12/02/16 09:00 73 12/02/16 08:58 92 Nasal Cannula 4.00 12/02/16 08:00 62 12/02/16 07:00 97.9 92 17 139/69 92 12/02/16 07:00 92 Nasal Cannula 4.00 Humidified 12/02/16 07:00 59 12/02/16 06:00 69 12/02/16 05:00 63 12/02/16 04:00 64 12/02/16 04:00 97.9 64 18 125/66 93 12/02/16 04:00 Nasal Cannula 4.00 Humidified 12/02/16 03:00 62 12/02/16 02:00 63 12/02/16 01:00 61 12/02/16 00:00 98.0 60 20 129/70 94 12/02/16 00:00 Nasal Cannula 4.00 Humidified 12/02/16 00:00 60 12/01/16 23:00 71 12/01/16 22:00 69 12/01/16 21:00 70 12/01/16 20:00 Nasal Cannula 4.00 Humidified 12/01/16 20:00 98.2 62 20 141/76 95 12/01/16 20:00 62 12/01/16 19:32 93 Nasal Cannula 5.00 12/01/16 18:00 77 12/01/16 17:00 65 I/O 12/01/16 12/01/16 12/01/16 12/02/16 12/02/16 12/02/16 07:00 15:00 23:00 07:00 15:00 23:00 Intake Total 680 ml 185 ml 680 ml Output Total 1100 ml 1200 ml Balance -420 ml 185 ml -520 ml Intake Oral 480 ml 480 ml IV Total 200 ml 185 ml 200 ml Output Urine Total 1100 ml 1200 ml # Voids 4 # Bowel Movements 1 1 1 Result Diagram: 12/02/16 0630 12/02/16 0630 Other Results Laboratory Tests Test 12/02/16 06:30 White Blood Count 12.0 Red Blood Count 3.45 Hemoglobin 10.7 Hematocrit 32.3 Mean Corpuscular Volume 93.9 Mean Corpuscular Hemoglobin 31.1 Mean Corpuscular Hemoglobin 33.1 Concent Red Cell Distribution Width 13.3 Platelet Count 477 Mean Platelet Volume 8.0 Neutrophils (%) (Auto) 71.2 Lymphocytes (%) (Auto) 15.2 Monocytes (%) (Auto) 11.2 Eosinophils (%) (Auto) 2.1 Basophils (%) (Auto) 0.3 Neutrophils # (Auto) 8.5 Lymphocytes # (Auto) 1.8 Monocytes # (Auto) 1.3 Eosinophils # (Auto) 0.3 Basophils # (Auto) 0.0 CBC Comment AUTO DIFF Differential Total Cells 100 Counted Neutrophils % (Manual) 55 Band Neutrophils % 1 Lymphocytes % 25 Monocytes % 9 Eosinophils % 3 Neutrophils # (Manual) 7.3 Metamyelocytes 2 Myelocytes 3 Nucleated Red Blood Cells 2 Differential Comment FINAL DIFF MANUAL Plasma Cells 2 Platelet Estimate HIGH Platelet Morphology Comment NORMAL Red Cell Morphology Comment NORMAL Prothrombin Time 26.9 Prothromb Time International 2.3 Ratio Sodium Level 139 Potassium Level 3.7 Chloride Level 100 Carbon Dioxide Level 31.0 Anion Gap 8 Blood Urea Nitrogen 11 Creatinine 0.63 Estimat Glomerular Filtration 89 Rate Random Glucose 102 Calcium Level 8.9 ROS General: Weakness HEENT: No: Sore Throat, Dysphagia, Other Cardiac: No: Chest Pain, Edema, Palpitations, Other Pulmonary: SOB, Wheezing GI: No: Abdominal Pain, BM, Diarrhea, N/V, Other /CHIEF CRNA: No: Dysuria, Urgency, Other Neuro/MS: No: Lightheaded, Confusion, Other Psych: No: Anxiety, Depression, Other Skin: No: Itching, Rash, Other Physical Exam Physical Exam PHYSICAL EXAMINATION GENERAL: This is a well-developed, well-nourished female who appears to be in no acute distress. She is alert and awake. HEAD: Normocephalic without any lesion or mass noted. Facial features appear symmetric. EYES: Perrla, Normal eye movement. OROPHARYNGEAL: Oropharynx without erythema or edema. MOUTH/THROAT: Tongue midline. NECK: Supple. Trachea midline without deviation. CARDIAC: Irregularly irregular. LUNGS: Decreased bs sabina. Basilar rales. ABDOMEN: Soft, nontender, no organomegaly or masses. Bowel sounds are heard in all four quadrants. No rebound. No guarding. EXTREMITIES: No CCE. NEUROLOGICAL: Patient mood and affect appropriate. SKIN:Warm and moist PSYCH: Mood and affect appropriate A/P Assessment and Plan (1) Atrial fibrillation (2) Severe sepsis (3) Tachycardia (4) Pneumonia (5) CHF (congestive heart failure) (6) Diabetes 1.5, managed as type 2 Assessment/Plan afib, HR improved. Was given dig on 11/29/16. continue PO Cardizem and metoprolol. appreciate cardiology input INR is 2.3. Off lovenox. Continue coumadin. pharmacy to dose echo report noted, EF 55-60%, mod. aortic stenosis remains with rales, SOB Worsening effusion. Increased IV lasix to 40mg. Slight improvement in sabina effusions per cxr. Will continue. continue with accuchecks AC/HS with ISS continue abx, Neg blood cultures so far. WBC trending down. duonebs PRN Antitussives PRN Depressed TSH, free T3 and T4 results noted Coumadin for DVT prophylaxis Replace K Labs in am PT eval and tx Hyperthyroidism continue beta ubaldo, Continue Tapazole, recommend outpatient endocrine evaluation for further treatment of hyperthyroidism Pt. not ready for discharge registered nurse surgical services for discharge planning D/W RN D/W pt Discussed With: Nurse, Family (pt. ), Other (Dr. Romero, seen to his behalf) Desirae Pressley MD Dec 02, 2016 16:49
[2016-12-02] MEDS: WARFARIN SOD 5 MG TAB PO SCH (16:58)
[2016-12-03] VITALS (25 sets, daily range): BP systolic 107–131; BP diastolic 51–62; PULSE 56–68; RESP 18; TEMP 98.1–98.4; O2SAT 93–99
[2016-12-03] MEDS: AMPICILLIN-SULBACTAM INJ 3 GM in SODIUM CHLORIDE 0.9% INJ 100 ML IV SCH ×2 (02:04→08:00)
[2016-12-03] MEDS: METHIMAZOLE 5 MG TAB PO SCH ×3 (05:16→21:00)
[2016-12-03] MEDS: INSULIN ASPART SUPPLEMENTAL SCALE SQ SCH ×4 (06:26→21:00)
--- NOTE | 2016-12-03 08:14 | PD.CARD.PN ---
Subjective Subjective Remarks Denies dyspnea, CP, dizziness, palpitations. Objective Medications Item Value Date Time Furosemide 40 mg 12/02/16 0900 (Lasix Inj) BID@09,18/IV PUSH 12/02/16 1710 Potassium Chloride 20 meq 11/30/16 2100 (KCl) Q12HR/PO 12/02/162005 Warfarin Sodium 5 mg 11/30/16 1600 (Coumadin) DAILY@16/PO 12/02/16 1658 Diltiazem HCl 360 mg 11/30/16 0930 (Cardizem Cd) DAILY/PO 12/02/16 0839 Metoprolol 25 mg 11/30/16 0930 Tartrate Q12HR/PO 12/02/162005 (Lopressor) Pravastatin Sodium 20 mg 11/28/16 0900 (Pravachol) DAILY/PO 12/02/16 0838 Vital Signs / I&O Vital Signs Date Time Temp Pulse Resp B/P Pulse Ox O2 Delivery O2 Flow Rate FiO2 12/03/16 07:47 93 Nasal Cannula 3.00 12/03/16 06:00 59 12/03/16 05:00 58 12/03/16 04:00 98.4 57 18 111/60 93 12/03/16 04:00 Nasal Cannula 3.00 Humidified 12/03/16 04:00 57 12/03/16 03:00 58 12/03/16 02:00 59 12/03/16 01:00 58 12/03/16 00:00 Nasal Cannula 3.00 Humidified 12/03/16 00:00 98.2 60 18 111/56 95 12/03/16 00:00 60 12/02/16 23:00 57 12/02/16 22:00 58 12/02/16 22:00 60 12/02/16 21:00 61 12/02/16 20:00 Nasal Cannula 3.00 Humidified 12/02/16 20:00 98.0 64 20 126/60 95 12/02/16 20:00 64 12/02/16 18:07 66 12/02/16 17:00 60 12/02/16 16:00 58 12/02/16 15:00 58 12/02/16 15:00 97.8 56 17 110/51 94 12/02/16 15:00 94 Nasal Cannula 3.00 Humidified 12/02/16 14:00 55 12/02/16 13:01 54 12/02/16 12:00 55 12/02/16 11:02 95 Nasal Cannula 4.00 Humidified 12/02/16 11:01 98.0 63 17 116/57 95 12/02/16 11:00 60 12/02/16 10:00 63 12/02/16 09:00 73 12/02/16 08:58 92 Nasal Cannula 4.00 I/O 12/02/16 12/02/16 12/02/16 12/03/16 12/03/16 12/03/16 07:00 15:00 23:00 07:00 15:00 23:00 Intake Total 680 ml 865 ml 680 ml Output Total 1200 ml 800 ml 1100 ml Balance -520 ml 65 ml -420 ml Intake Oral 480 ml 420 ml 480 ml IV Total 200 ml 445 ml 200 ml Output Urine Total 1200 ml 800 ml 1100 ml # Bowel Movements 1 2 1 Physical Exam GENERAL: Well developed, well nourished. No acute distress. HEENT: Jugular venous pressure is normal. CHEST: Lungs clear to auscultation anteriorly. CARDIAC: Irregular rhythm without S3, S4, or murmur. ABDOMEN: Soft, nontender, no hepatosplenomegaly. Bowel sounds present. EXTREMITIES: No clubbing, cyanosis, or edema. Assessment and Plan Problem List: (1) Paroxysmal atrial fibrillation Assessment and Plan: HR's now under good control, mildly bradycardic. Patient symptomatically improving, still with pulmonary edema on CXR. Echo reportedly shows normal left ventricular function, no severe valvular abnormalities. Thromboembolic risk overall moderately increased. INR now therapeutic. REC reduce metoprolol dose, continue Cardizem CD/Amiodarone/warfarin will f/u as needed; she can f/u with Dr. Cannon after discharge Code Status full code Discussed Condition With patient Richardson Ferguson MD December 03, 2016 08:14
[2016-12-03] MEDS ORDERED: METOPROLOL TARTRATE 25 MG TAB PO SCH (09:00)
[2016-12-03 09:29] LABS: HEMATOCRIT 33.6 % (35.0-46.0); MEAN CELL VOLUME 93.4 FL (80.0-100.0); MEAN CORPUSCULAR HEMOGLOBIN 31.7 PG (27.0-34.0); MEAN CORPUSCULAR HGB CONC 33.9 % (32.0-36.0); PLATELET COUNT 466 TH/MM3 (150-450); RED CELL DISTRIBUTION WIDTH 13.4 % (11.6-17.2); REVIEW FLAG FINAL; WHITE BLOOD COUNT 12.4 TH/MM3 (4.0-11.0)
[2016-12-03 09:33] LABS: INTERNATIONAL NORMALIZED RATIO 4.3 RATIO; PROTHROMBIN TIME - PATIENT 50.2 SEC (9.8-11.6)
[2016-12-03] MEDS: DILTIAZEM-CD 180 MG CAP ER PO SCH (10:07)
[2016-12-03] MEDS: AMIODARONE 200 MG TAB PO SCH (10:07)
[2016-12-03] MEDS: FUROSEMIDE 20 MG/2 ML VIAL IV PUSH SCH ×2 (10:07→18:00)
[2016-12-03] MEDS: metFORMIN HCL 500 MG TAB PO SCH ×2 (10:07→21:01)
[2016-12-03] MEDS: FAMOTIDINE 20 MG TAB PO SCH ×2 (10:08→21:00)
[2016-12-03] MEDS: POTASSIUM CHLORIDE 20 MEQ CONTROLLED RELEASE TAB PO SCH ×2 (10:08→21:01)
[2016-12-03] MEDS: PRAVASTATIN SOD 20 MG TAB PO SCH (10:09)
--- NOTE | 2016-12-03 10:29 | HHI.PR ---
Subjective History of Present Illness feels better , In good spirits breathing is better less cough NO CP No fever or chills good appetite Offers no other c/o Vitals/Results Intake & Output 12/02/16 12/02/16 12/03/16 15:00 23:00 07:00 Intake Total 865 ml 680 ml Output Total 800 ml 1100 ml Balance 65 ml -420 ml Intake Oral 420 ml 480 ml IV Total 445 ml 200 ml Output Urine Total 800 ml 1100 ml # Bowel Movements 2 1 Vital Signs Vital Signs Date Time Temp Pulse Resp B/P Pulse Ox O2 Delivery O2 Flow Rate FiO2 12/03/16 07:47 93 Nasal Cannula 3.00 12/03/16 06:00 59 12/03/16 05:00 58 12/03/16 04:00 98.4 57 18 111/60 93 12/03/16 04:00 Nasal Cannula 3.00 Humidified 12/03/16 04:00 57 12/03/16 03:00 58 12/03/16 02:00 59 12/03/16 01:00 58 12/03/16 00:00 Nasal Cannula 3.00 Humidified 12/03/16 00:00 98.2 60 18 111/56 95 12/03/16 00:00 60 12/02/16 23:00 57 12/02/16 22:00 58 12/02/16 22:00 60 12/02/16 21:00 61 12/02/16 20:00 Nasal Cannula 3.00 Humidified 12/02/16 20:00 98.0 64 20 126/60 95 12/02/16 20:00 64 12/02/16 18:07 66 12/02/16 17:00 60 12/02/16 16:00 58 12/02/16 15:00 58 12/02/16 15:00 97.8 56 17 110/51 94 12/02/16 15:00 94 Nasal Cannula 3.00 Humidified 12/02/16 14:00 55 12/02/16 13:01 54 12/02/16 12:00 55 12/02/16 11:02 95 Nasal Cannula 4.00 Humidified 12/02/16 11:01 98.0 63 17 116/57 95 12/02/16 11:00 60 CBC/BMP: 12/03/16 0903 12/02/16 0630 Lab Results Laboratory Tests Test 12/03/16 09:03 White Blood Count 12.4 TH/MM3 Red Blood Count 3.60 MIL/MM3 Hemoglobin 11.4 GM/DL Hematocrit 33.6 % Mean Corpuscular Volume 93.4 FL Mean Corpuscular Hemoglobin 31.7 PG Mean Corpuscular Hemoglobin 33.9 % Concent Red Cell Distribution Width 13.4 % Platelet Count 466 TH/MM3 Mean Platelet Volume 7.8 FL Hematology Comments Prothrombin Time 50.2 SEC Prothromb Time International 4.3 RATIO Ratio Physical Exam General General Appearance: Well Developed, Well Nourished, No Acute Distress, Comfortable, Obese Eyes Eye Exam: Pupils Equal, Sclera White Ears & Nose Ears & Nose Exam: Nasal Mucosa [place] Throat Throat Exam: Oral Mucosa [place] & Moist Neck Neck Exam: Neck Supple, Trachea Midline Pulmonary Resp Exam: Breath Sounds Equal, No Distress, Crackles Cardiology CV Exam: Regular, Normal Sinus Rhythm Gastrointestinal/Abdomen GI Exam: Soft, Non-Tender, Bowel Sounds Present, Non-Distended Musculoskeletal MS Exam: Joints Intact Integumentary Skin Exam: Warm, Dry Extremeties Extremities Exam: Pedal Pulses Palpable, Trace Edema Neurologic Neuro Exam: Alert, Awake, Oriented, Speech Clear, Moving All Extremities, No Focal Deficits Psychiatric Psych Exam: Appropriate Responses VTE Prophylaxis VTE Prophylaxis Meds: Heparin, Coumadin Assessment/Plan Problem List: (1) Atrial fibrillation (2) Severe sepsis (3) Tachycardia (4) Pneumonia (5) CHF (congestive heart failure) (6) Diabetes 1.5, managed as type 2 Assessment/Plan New onset afib, converted to SR HR 50s to 60 PO Cardizem .will reduce dose 240 mg daily cont Amidarone 200 mg daily cont metoprolol 25 mg bid d/w DR sarahy Ferguson, he agreed INR >4 . hold Coumadin, Off Sq Lovenox echo report noted, EF 55-60%, mod. aortic stenosis wean O2 remains with rales, SOB Repeat CXR noted Lasix dose increased to 40 mg BID diabetic diet oral hypoglycemic accuchecks AC/HS with ISS D/C IV abx, All cultures are negative start po augmentin duonebs PRN Antitussives PRN Depressed TSH, elevated free T4 c/w Hyperthyroidism On Tapazole & BB will rec out pt Endocrine evaluation when more stable Coumadin/ for DVT prophylaxis Replace K PT eval and tx SS for d/c planning d/w PT d/w RN Problem Qualifiers (1) Atrial fibrillation: Qualified Code: I48.91 - Atrial fibrillation, unspecified type (2) Pneumonia: Qualified Code: J18.9 - Pneumonia of both lower lobes due to infectious organism (3) CHF (congestive heart failure): Qualified Code: I50.9 - Acute congestive heart failure, unspecified congestive heart failure type Jimbo Romero MD December 03, 2016 10:29
[2016-12-03] MEDS: AMOXICILLIN/CLAVULANATE K 500 MG TAB PO SCH ×2 (14:19→21:00)
[2016-12-03] MEDS ORDERED: PILL SPLITTER OTHER PRN (15:15)
[2016-12-03] MEDS: METOPROLOL TARTRATE 25 MG TAB PO SCH (21:00)
[2016-12-04] VITALS (18 sets, daily range): BP systolic 107–125; BP diastolic 51–62; PULSE 52–67; RESP 16–18; TEMP 97.8–98.3; O2SAT 95–98
[2016-12-04] MEDS: AMOXICILLIN/CLAVULANATE K 500 MG TAB PO SCH ×2 (05:37→14:38)
[2016-12-04] MEDS: METHIMAZOLE 5 MG TAB PO SCH ×2 (05:37→14:38)
[2016-12-04] MEDS: INSULIN ASPART SUPPLEMENTAL SCALE SQ SCH ×2 (06:23→12:03)
[2016-12-04 06:44] LABS: INTERNATIONAL NORMALIZED RATIO 3.2 RATIO; PROTHROMBIN TIME - PATIENT 36.8 SEC (9.8-11.6)
[2016-12-04 07:18] LABS: BICARBONATE 35.7 MEQ/L (21.0-32.0); POTASSIUM 4.1 MEQ/L (3.5-5.1)
[2016-12-04] MEDS ORDERED: DILTIAZEM-CD 240 MG CAP ER PO SCH (09:00)
--- NOTE | 2016-12-04 09:58 | HHI.PR ---
Subjective History of Present Illness feels well breathing is better less cough , no sputum NO CP No fever or chills good appetite No N/V No abd pain no diarrhea Offers no other c/o Vitals/Results Intake & Output 12/03/16 12/03/16 12/04/16 15:00 23:00 07:00 Intake Total 360 ml 240 ml Output Total 850 ml Balance 360 ml -610 ml Intake Oral 360 ml 240 ml Output Urine Total 850 ml # Voids 4 # Bowel Movements 4 Vital Signs Vital Signs Date Time Temp Pulse Resp B/P Pulse Ox O2 Delivery O2 Flow Rate FiO2 12/04/16 09:05 65 12/04/16 08:00 98.3 60 16 114/57 96 12/04/16 08:00 61 12/04/16 08:00 96 Nasal Cannula 3.00 12/04/16 07:00 67 12/04/16 06:00 54 12/04/16 05:00 58 12/04/16 04:00 Nasal Cannula 3.00 12/04/16 04:00 97.8 56 18 122/59 95 12/04/16 04:00 55 12/04/16 03:00 58 12/04/16 02:00 52 12/04/16 01:00 52 12/04/16 00:00 Nasal Cannula 3.00 12/04/16 00:00 98.3 56 18 124/62 97 12/04/16 00:00 56 12/03/16 23:00 58 12/03/16 22:00 56 12/03/16 21:00 62 12/03/16 20:00 62 12/03/16 20:00 Nasal Cannula 3.00 12/03/16 20:00 98.3 61 18 120/55 96 12/03/16 19:31 99 Nasal Cannula 3.00 12/03/16 19:00 68 12/03/16 17:00 58 12/03/16 16:00 60 12/03/16 15:00 95 Nasal Cannula 3.00 Humidified 12/03/16 15:00 59 12/03/16 15:00 98.3 62 18 107/51 95 12/03/16 13:00 58 12/03/16 12:00 62 12/03/16 11:30 98.1 67 18 131/62 95 12/03/16 11:00 95 Nasal Cannula 3.00 Humidified 12/03/16 11:00 66 12/03/16 10:00 68 CBC/BMP: 12/03/16 0903 12/04/16 0504 Lab Results Laboratory Tests Test 12/04/16 05:04 Prothrombin Time 36.8 SEC Prothromb Time International 3.2 RATIO Ratio Sodium Level 140 MEQ/L Potassium Level 4.1 MEQ/L Chloride Level 97 MEQ/L Carbon Dioxide Level 35.7 MEQ/L Anion Gap 7 MEQ/L Blood Urea Nitrogen 14 MG/DL Creatinine 0.76 MG/DL Estimat Glomerular Filtration 72 ML/MIN Rate Random Glucose 94 MG/DL Calcium Level 8.8 MG/DL Physical Exam General General Appearance: Well Developed, Well Nourished, No Acute Distress, Comfortable, Obese Eyes Eye Exam: Pupils Equal, Sclera White Ears & Nose Ears & Nose Exam: Nasal Mucosa [place] Throat Throat Exam: Oral Mucosa [place] & Moist Neck Neck Exam: Neck Supple, Trachea Midline Pulmonary Resp Exam: Breath Sounds Equal, No Distress Resp Remarks occ faint basal crackles Cardiology CV Exam: Regular, Normal Sinus Rhythm Gastrointestinal/Abdomen GI Exam: Soft, Non-Tender, Bowel Sounds Present, Non-Distended Musculoskeletal MS Exam: Joints Intact Integumentary Skin Exam: Warm, Dry Extremeties Extremities Exam: Pedal Pulses Palpable, Trace Edema Neurologic Neuro Exam: Alert, Awake, Oriented, Speech Clear, Moving All Extremities, No Focal Deficits Psychiatric Psych Exam: Appropriate Responses VTE Prophylaxis VTE Prophylaxis Meds: Heparin, Coumadin Assessment/Plan Problem List: (1) Atrial fibrillation (2) Severe sepsis (3) Tachycardia (4) Pneumonia (5) CHF (congestive heart failure) (6) Diabetes 1.5, managed as type 2 Assessment/Plan New onset afib, converted to SR HR 60 PO Cardizem 240 mg daily cont Amidarone 200 mg daily cont metoprolol 25 mg bid INR 3.2 . hold Coumadin again today , start from tomorrow at lower dose Off Sq Lovenox echo report noted, EF 55-60%, mod. aortic stenosis wean O2 Acute Diastolic CHF / mod Repeat CXR noted better now change Lasix to po 40 mg daily rec f/u CXR in 4 wks by pcp diabetic diet oral hypoglycemic accuchecks AC/HS with ISS All cultures are negative po augmentin /complete course x total 2 wks abx duonebs PRN Antitussives PRN Depressed TSH, elevated free T4 c/w Hyperthyroidism On Tapazole & BB will rec out pt Endocrine evaluation when more stable Coumadin/ for DVT prophylaxis Replace K PT eval and tx medically stable for d.c d?c to SNF today see MRS see [facility] f/u pcp.card out pt consult w Endo f/.u CXR in 4 wks d/w PT d/w RN Problem Qualifiers (1) Atrial fibrillation: Qualified Code: I48.91 - Atrial fibrillation, unspecified type (2) Pneumonia: Qualified Code: J18.9 - Pneumonia of both lower lobes due to infectious organism (3) CHF (congestive heart failure): Qualified Code: I50.9 - Acute congestive heart failure, unspecified congestive heart failure type Jimbo Romero MD December 04, 2016 09:58
[2016-12-04] MEDS: FUROSEMIDE 20 MG/2 ML VIAL IV PUSH SCH (10:38)
[2016-12-04] MEDS: PRAVASTATIN SOD 20 MG TAB PO SCH (10:38)
[2016-12-04] MEDS: metFORMIN HCL 500 MG TAB PO SCH (10:38)
[2016-12-04] MEDS: AMIODARONE 200 MG TAB PO SCH (10:39)
[2016-12-04] MEDS: FAMOTIDINE 20 MG TAB PO SCH (10:39)
[2016-12-04] MEDS: METOPROLOL TARTRATE 25 MG TAB PO SCH (10:39)
[2016-12-04] MEDS: POTASSIUM CHLORIDE 20 MEQ CONTROLLED RELEASE TAB PO SCH (10:39)
[2016-12-04] MEDS ORDERED: AMIO200T PO (10:49)
[2016-12-04] MEDS ORDERED: COUM2.5T PO (10:49)
[2016-12-04] MEDS ORDERED: METO25TA3 PO (10:49)
[2016-12-04] MEDS ORDERED: CARD240C6 PO (10:49)
[2016-12-04] MEDS ORDERED: POTA20TA5 PO (10:49)
[2016-12-04] MEDS ORDERED: METH5 PO (10:49)
[2016-12-04] MEDS ORDERED: AUGM500T7 PO (10:49)
[2016-12-04] MEDS ORDERED: FURO20TA PO (10:49)
--- NOTE | 2016-12-08 16:50 | HHI.DS ---
Discharge Summary Admission Date Nov 27, 2016 at 11:36 Discharge Date: December 04, 2016 Admitting Diagnosis tachycardia Brief History This was a pleasant 86-year-old white female who was in her usual state of health and very active up until approximately 4-5 days ago. The patient came home from an event with some of her friends and noted a sore throat with some mild fever. The patient went to bed, treated her symptoms which continued throughout Saturday without any relief. On Saturday, on day three, the patient was taken to the Urgent Care per her to have a chest x-ray and was diagnosed with pneumonia. The patient was then told that she would be placed on p.o. antibiotics but if she did not get better she would have to come to the hospital. Today the patient was resting and noticed her heart feel like it was racing. The patient denied any previous issues with her heart except for a cardiac murmur. No myocardial infarction. No cardiovascular disease. No dysrhythmia. The patient also noted that she had been coughing so hard to the point that she could not catch her breath. The patient was positive for shortness of breath but no diaphoresis. No headache. No nausea. No vomiting. No diarrhea. No constipation. The patient did have a small stool yesterday but does note she has had no appetite and had eaten very little food. CBC/BMP: 12/04/16 0504 Imaging Last Impressions Chest X-Ray 12/02/16 0600 Signed Impressions: Service Date/Time: Friday, December 02, 2016 03:42 - CONCLUSION: Minimally improved, mainly on the right. Bibasilar consolidation and effusions persist. Delta Harmon MD PE at Discharge General General Appearance: Well Developed, Well Nourished, No Acute Distress, Comfortable Eyes Eye Exam: Pupils Equal, Pupils Reactive Ears & Nose Ears & Nose Exam: Nasal Mucosa [place] Throat Throat Exam: Oral Mucosa [place] & Moist Neck Neck Exam: Neck Supple Pulmonary Resp Exam: Crackles Cardiology CV Exam: Irregular, Arrhythmia Gastrointestinal/Abdomen GI Exam: Soft, Non-Tender, Bowel Sounds Present, Non-Distended Musculoskeletal MS Exam: Joints Intact Integumentary Skin Exam: Warm, Dry Extremeties Extremities Exam: Pedal Pulses Palpable, Trace Edema Neurologic Neuro Exam: Alert, Awake, Oriented, Speech Clear, Moving All Extremities, No Focal Deficits Psychiatric Psych Exam: Appropriate Responses VTE Prophylaxis VTE Prophylaxis Meds: Heparin, Coumadin Hospital Course These are the diagnosis used to treat patient during this hospital stay. (1) Atrial fibrillation (2) Severe sepsis (3) Tachycardia (4) Pneumonia (5) CHF (congestive heart failure) (6) Diabetes 1.5, managed as type 2 afib, HR initially was tachycardic , but treated with Lanoxin and improved. Also continued her PO Cardizem and Amidarone Initially controlled with Cardizem gtt, down to 5/hr and weaned when PO Cardizem effective and HR controlled. appreciate cardiology input, followed through out hospital stay. continue Coumadin dosing daily until , Lovenox until INR >2 pharmacy to dose echo report noted, EF 55-60%, mod. aortic stenosis CHF active medical treatment continued. remains with rales, SOB will check CXR add Lasix 20 mg PO BID continue with accuchecks AC/HS with ISS for DM management Pneumonia treatment, monitored with lab and cultures. continue abx, follow cultures WBC 12.9, leukocytosis duonebs PRN Antitussives PRN. Patient did slowly respond to treatment regimen. Patient was maintained on IV antibiotics until she was stable from cough and infextion. Then was placed on PO Augmentin. Depressed TSH, free T3 and T4 results noted . Moniotred, but no acute treatment needed in hospital stay. Coumadin/Lovenox for DVT prophylaxis Replace K for hypokalemia and labs monitored during her CHF diuresis and Lasix Labs monitored and treated for her acute abnormals. Pt Condition on Discharge: Stable Discharge Disposition: Discharge to SNF Discharge Instructions DIET: Follow Instructions for: Heart Healthy Diet, Diabetic Diet Fluid Restrictions: 1400cc/day Activities you can perform: Regular-No Restrictions Follow up Referrals: Cardiology - 3 Months Endocrinology - 4 Weeks PCP Follow-up - 1 Week New Medications: Warfarin (Coumadin) 2.5 Mg Tab 2.5 MG PO DAILY Prevent Blood Clot #30 Ref 0 TAB Amiodarone (Amiodarone) 200 Mg Tab 200 MG PO DAILY a fib #30 TAB Amoxicillin-Clavulanate (Augmentin) 500-125 mg Tab 500 MG PO Q8HR pna #21 TAB Diltiazem CD 24 HR (Cardizem CD 24 HR) 240 Mg Caper 240 MG PO DAILY a fib #30 CAP Furosemide (Furosemide) 20 Mg Tab 40 MG PO DAILY chf #60 TAB Methimazole (Tapazole) 5 Mg Tab 5 MG PO Q8HR hyperthroidism #90 TAB Metoprolol Tartrate (Metoprolol Tartrate) 25 Mg Tab 25 MG PO Q12HR a fib #60 TAB Potassium Chloride Microencaps (Potassium Chloride Microencaps) 20 Meq Tab 20 MEQ PO DAILY low K #30 TAB Continued Medications: Chondroitin Sulfate (Optiflex-C) 400 Mg Cap 1200 MG PO DAILY #1 BOTTLE Cinnamon (Cinnamon) 500 Mg Tab 1000 MG PO BID #1 BOTTLE Glucosamine (Glucosamine) 1,500 Mg Tab 1500 MG PO DAILY Herbal Supplements Ref 0 TAB Lovastatin (Lovastatin) 20 Mg Tab 20 MG PO DAILY Cholesterol Management #30 Ref 0 TAB Multiple Vitamins W/ Minerals (Centrum) 1 Tab 1 TAB PO DAILY Nutritional Supplement Ref 0 TAB Sitagliptin-Metformin (Janumet) 50-500 Mg Tab 1 TAB PO BID Blood Sugar Management #60 Ref 0 TAB ([Cranberry 1,680MG]) 1680 MG PO DAILY Discontinued Medications: Aspirin DR (Aspirin Adult Low Strength) 81 Mg Tabdr 81 MG PO DAILY TAB B-Complex Vitamins (Vitamin B Complex) 1 Tab 1 TAB PO DAILY Biotin (Biotin) 5,000 Mcg Cap 55184 MCG PO DAILY #1 BOTTLE Cholecalciferol (Vitamin D-3) 1,000 Unit Tab 1000 UNITS PO DAILY #30 Ref 0 TAB Cyanocobalamin (Vitamin B-12) 1,000 Mcg Tab 2000 MCG PO DAILY Nutritional Supplement #1 Ref 0 BOTTLE Furosemide (Lasix) 20 Mg Tab 20 MG PO DAILY #30 Ref 0 TAB Levofloxacin (Levaquin) 750 Mg Tab 750 MG PO DAILY Infection #10 Ref 0 TAB Multiple Vitamins W/ Minerals (Eye Vitamins) 1 Cap 1 CAP PO DAILY Nutritional Supplement #30 Ref 0 CAP Potassium Chloride Microencaps (Potassium Chloride Microencaps) 10 Meq Tab 5 MEQ PO DAILY Electrolyte Replacement #30 Ref 0 TAB Pyridoxine (Vitamin B-6) 100 Mg Tab 100 MG PO DAILY Nutritional Supplement #30 Ref 0 TAB Sara Carcamo December 08, 2016 16:50
== END 2016-12-04 16:40 | DRG 871 ==
LOC: NEPC 09:42 → NEDA 11:36 → NEDH 17:04 → HCIS 18:26
PROVIDERS: ADMIT Specialist; ATTEND Specialist
DX: A41.9 Sepsis, unspecified organism (principal); J18.9 Pneumonia, unspecified organism; I50.31 Acute diastolic (congestive) heart failure; I48.0 Paroxysmal atrial fibrillation; E11.65 Type 2 diabetes mellitus with hyperglycemia; D63.8 Anemia in other chronic diseases classified elsewhere; R00.1 Bradycardia, unspecified; E44.1 Mild protein-calorie malnutrition; E11.9 Type 2 diabetes mellitus without complications; I35.0 Nonrheumatic aortic (valve) stenosis; R65.20 Severe sepsis without septic shock; R49.0 Dysphonia; Z88.6 Allergy status to analgesic agent; Z88.8 Allergy status to other drugs, medicaments and biological substances; E87.6 Hypokalemia; E78.00 Pure hypercholesterolemia, unspecified; Z87.891 Personal history of nicotine dependence; Z87.01 Personal history of pneumonia (recurrent); E78.5 Hyperlipidemia, unspecified; Z96.641 Presence of right artificial hip joint; R74.8 Abnormal levels of other serum enzymes; E05.90 Thyrotoxicosis, unspecified without thyrotoxic crisis or storm
CPT/HCPCS: 71010; 76937; 80048; 80053; 81001; 82550; 82552; 82948; 83605; 83735; 83880; 84100; 84439; 84443; 84480; 84484; 85007; 85025; 85027; 85610; 85730; 87040; 87086; 87804; 93005; 93306; 94150; 96361; 96374; 96375; 96376; J0153; J0282; J0295; J0456; J0692; J1160; J1650; J1815; J1940; J7030; J7040; J7050